=== PATIENT | female | born 1960 | race Caucasian/White ===

== ENCOUNTER → 2017-10-16 | Outpatient (CLI) | payer OTHER ==
[~2017-10-16] MED LIST: ACET325 PO; ASPI325EC PO; ATOR40TA PO; ATORVASTATIN; AZIT250 PO; CHOL10002; CYCL10 PO; DAILY MULTIPLE1 EACH; FISH OIL 1,0001 EAC1 PO; IBUP800 PO; OMEPRAZOLE MAGN20 MG PO; OXYACE5T PO; THYR60 PO; THYROID
[2017-10-16 08:48] LABS: BASOPHILS ABSOLUTE AUTO 0.18 K/mm3 (0.00-0.23); BASOPHILS PERCENT AUTO 2 % (0-2); EOSINOPHILS ABSOLUTE AUTO 0.57 K/mm3 (0.00-0.68); EOSINOPHILS PERCENT AUTO 6 % (0-6); Hematocrit 52.9 % (33.0-51.0); Hemoglobin 16.5 g/dL (11.5-16.0); IMMATURE GRAN ABSOLUTE AUTO 0.12 K/mm3 (0.00-0.10); IMMATURE GRAN PERCENT AUTO 1 % (0-1); LYMPHOCYTES ABSOLUTE AUTO 2.04 K/mm3 (0.84-5.20); LYMPHOCYTES PERCENT AUTO 20 % (21-46); MONOCYTES ABSOLUTE AUTO 1.08 K/mm3 (0.16-1.47); MONOCYTES PERCENT AUTO 10 % (4-13); Mean Corpuscular HGB 22.9 pg (26.0-34.0); Mean Corpuscular HGB Conc 31.2 g/dL (31.5-36.5); Mean Corpuscular Volume 74 fL (80-100); Mean Platelet Volume 9.8 fL (9.1-12.4); NEUTROPHILS ABSOLUTE AUTO 6.38 K/mm3 (1.96-9.15); NEUTROPHILS PERCENT AUTO 62 % (41-73); Platelet Count 633 K/mm3 (150-400); RDW Coefficient Variation 21.1 % (11.7-14.2); RDW Standard Deviation 50.2 fL (35.1-46.3); Red Blood Cell Count 7.19 M/mm3 (3.80-5.20); White Blood Cell Count 10.37 K/mm3 (4.00-11.30)
[2017-10-16 09:37] LABS: Anion Gap 11 mmol/L (6-16); Blood Urea Nitrogen 22 mg/dL (8-24); Bun/Creatinine Ratio 25.3 (12.0-20.0); CO2, Blood 26 mmol/L (21-32); Chloride, Blood 103 mmol/L (98-108); Creatinine, Blood 0.87 mg/dL (0.40-1.00); Glomerular Filtration Rate >60 (60-); Glucose, Blood 124 mg/dL (70-99); Potassium, Blood 4.3 mmol/L (3.5-5.5); Sodium, Blood 140 mmol/L (136-145)
[2017-10-16 09:38] LABS: Albumin, Blood 3.6 g/dL (3.4-5.0)
[2017-10-16 09:40] LABS: Alanine Aminotransfer (ALT/SGP 46 U/L (12-78); Albumin/Globulin Ratio 0.9 (0.8-1.8); Alk Phos 66 U/L (40-126); Aspartate Aminotrans (AST/SGOT 39 U/L (12-37); Bilirubin, Total 0.3 mg/dL (0.1-1.0); Globulin, Blood 4.2 g/dL (2.2-4.0); Total Protein, Blood 7.8 g/dL (6.4-8.2)
[2017-10-16 13:54] LABS: Percent Saturation 5.6 % (15.0-50.0)
== END ==
LOC: LAB EV 08:44 → LAB SHORT 08:44
PROVIDERS: General Practice
DX: I95.9 Hypotension, unspecified (principal); D47.3 Essential (hemorrhagic) thrombocythemia; R07.9 Chest pain, unspecified
CPT/HCPCS: 80053; 83540; 83550; 85025; 85379

== ENCOUNTER → 2018-01-15 | Outpatient (CLI) | payer OTHER ==
[~2018-01-15] MED LIST changes: -ACET325 PO; -ATOR40TA PO; -ATORVASTATIN; -AZIT250 PO; -IBUP800 PO; -OMEPRAZOLE MAGN20 MG PO
== END | disposition home or self-care (01) ==
LOC: LAB EV 08:36 → LAB SHORT 08:36
DX: J02.9 Acute pharyngitis, unspecified (principal)
CPT/HCPCS: 87070

== ENCOUNTER 2018-05-04 06:30 | Inpatient (IN) | payer OTHER ==
[~2018-05-04] VITALS: Ht 175.3 cm; Wt 91.7 kg
[2018-05-04] MEDS ORDERED: ATORVASTATIN (07:06)
[2018-05-04 07:09] LABS: BASOPHILS ABSOLUTE AUTO 0.16 K/mm3 (0.00-0.23); BASOPHILS PERCENT AUTO 1 % (0-2); EOSINOPHILS ABSOLUTE AUTO 0.02 K/mm3 (0.00-0.68); EOSINOPHILS PERCENT AUTO 0 % (0-6); Hemoglobin 13.5 g/dL (11.5-16.0); IMMATURE GRAN ABSOLUTE AUTO 0.58 K/mm3 (0.00-0.10); IMMATURE GRAN PERCENT AUTO 2 % (0-1); LYMPHOCYTES ABSOLUTE AUTO 1.04 K/mm3 (0.84-5.20); LYMPHOCYTES PERCENT AUTO 3 % (21-46); MONOCYTES PERCENT AUTO 8 % (4-13); Mean Corpuscular HGB 20.2 pg (26.0-34.0); Mean Corpuscular Volume 67 fL (80-100); Mean Platelet Volume 10.2 fL (9.1-12.4); NEUTROPHILS ABSOLUTE AUTO 27.49 K/mm3 (1.96-9.15); NEUTROPHILS PERCENT AUTO 86 % (41-73); Platelet Count 702 K/mm3 (150-400); RDW Coefficient Variation 18.7 % (11.7-14.2); RDW Standard Deviation 39.9 fL (35.1-46.3); Red Blood Cell Count 6.69 M/mm3 (3.80-5.20); White Blood Cell Count 31.89 K/mm3 (4.00-11.30)
[2018-05-04 07:35] LABS: Alanine Aminotransfer (ALT/SGP 24 U/L (12-78); Albumin, Blood 3.2 g/dL (3.4-5.0); Albumin/Globulin Ratio 0.8 (0.8-1.8); Alk Phos 61 U/L (50-136); Anion Gap 10 mmol/L (6-16); Aspartate Aminotrans (AST/SGOT 12 U/L (12-37); Bilirubin, Total 0.9 mg/dL (0.1-1.0); Blood Urea Nitrogen 10 mg/dL (8-24); Bun/Creatinine Ratio 16.4 (12.0-20.0); CO2, Blood 22 mmol/L (21-32); Calcium, Blood 8.9 mg/dL (8.5-10.1); Chloride, Blood 105 mmol/L (98-108); Creatinine, Blood 0.61 mg/dL (0.40-1.00); Globulin, Blood 4.2 g/dL (2.2-4.0); Glomerular Filtration Rate >60 (60-); Glucose, Blood 155 mg/dL (70-99); Potassium, Blood 3.6 mmol/L (3.5-5.5); Sodium, Blood 137 mmol/L (136-145); Total Protein, Blood 7.4 g/dL (6.4-8.2); Troponin I <0.015 ng/mL (0.000-0.040)
[2018-05-04 14:02] LABS: Hematocrit 43.1 % (33.0-51.0); Hemoglobin 13.2 g/dL (11.5-16.0); Mean Corpuscular HGB 20.7 pg (26.0-34.0); Mean Corpuscular HGB Conc 30.6 g/dL (31.5-36.5); Mean Corpuscular Volume 67 fL (80-100); Mean Platelet Volume 9.9 fL (9.1-12.4); Platelet Count 664 K/mm3 (150-400); RDW Coefficient Variation 18.5 % (11.7-14.2); RDW Standard Deviation 40.1 fL (35.1-46.3); Red Blood Cell Count 6.39 M/mm3 (3.80-5.20); White Blood Cell Count 28.95 K/mm3 (4.00-11.30)
[2018-05-04 14:41] LABS: BAND PERCENT MAN 6 % (0-8); BASOPHILS PERCENT MAN 0 % (0-2); EOSINOPHILS PERCENT MAN 0 % (0-6); LYMPHOCYTES ABSOLUTE MAN 2.02 K/mm3 (0.84-5.20); LYMPHOCYTES PERCENT MAN 7 % (21-46); MONOCYTES ABSOLUTE MAN 0.86 K/mm3 (0.16-1.47); MONOCYTES PERCENT MAN 3 % (4-13); NEUTROPHILS ABSOLUTE MAN 26.05 K/mm3 (1.96-9.15); SEG NEUTROPHILS PERCENT MAN 84 % (41-73); TOTAL CELLS COUNTED 100
[2018-05-05 05:31] LABS: BASOPHILS ABSOLUTE AUTO 0.16 K/mm3 (0.00-0.23); BASOPHILS PERCENT AUTO 1 % (0-2); EOSINOPHILS ABSOLUTE AUTO 0.11 K/mm3 (0.00-0.68); EOSINOPHILS PERCENT AUTO 0 % (0-6); Hematocrit 40.9 % (33.0-51.0); Hemoglobin 12.3 g/dL (11.5-16.0); IMMATURE GRAN ABSOLUTE AUTO 0.52 K/mm3 (0.00-0.10); IMMATURE GRAN PERCENT AUTO 2 % (0-1); LYMPHOCYTES ABSOLUTE AUTO 0.75 K/mm3 (0.84-5.20); LYMPHOCYTES PERCENT AUTO 3 % (21-46); MONOCYTES ABSOLUTE AUTO 2.45 K/mm3 (0.16-1.47); MONOCYTES PERCENT AUTO 9 % (4-13); Mean Corpuscular HGB 20.2 pg (26.0-34.0); Mean Corpuscular HGB Conc 30.1 g/dL (31.5-36.5); Mean Corpuscular Volume 67 fL (80-100); Mean Platelet Volume 10.2 fL (9.1-12.4); NEUTROPHILS ABSOLUTE AUTO 22.81 K/mm3 (1.96-9.15); NEUTROPHILS PERCENT AUTO 85 % (41-73); Platelet Count 599 K/mm3 (150-400); RDW Coefficient Variation 18.1 % (11.7-14.2); RDW Standard Deviation 39.8 fL (35.1-46.3)
[2018-05-05 05:50] LABS: Alanine Aminotransfer (ALT/SGP 18 U/L (12-78); Albumin, Blood 2.8 g/dL (3.4-5.0); Albumin/Globulin Ratio 0.7 (0.8-1.8); Alk Phos 55 U/L (50-136); Anion Gap 9 mmol/L (6-16); Aspartate Aminotrans (AST/SGOT 9 U/L (12-37); Bilirubin, Total 0.9 mg/dL (0.1-1.0); Blood Urea Nitrogen 15 mg/dL (8-24); Bun/Creatinine Ratio 22.4 (12.0-20.0); CO2, Blood 24 mmol/L (21-32); Calcium, Blood 8.5 mg/dL (8.5-10.1); Chloride, Blood 104 mmol/L (98-108); Creatinine, Blood 0.67 mg/dL (0.40-1.00); Globulin, Blood 4.1 g/dL (2.2-4.0); Glomerular Filtration Rate >60 (60-); Glucose, Blood 114 mg/dL (70-99); Potassium, Blood 3.3 mmol/L (3.5-5.5); Sodium, Blood 137 mmol/L (136-145); Total Protein, Blood 6.9 g/dL (6.4-8.2); Troponin I 0.072 ng/mL (0.000-0.040)
[2018-05-05 15:13] LABS: Rheumatoid Factor, Serum Negative (Negative)
[2018-05-06 08:25] LABS: BASOPHILS ABSOLUTE AUTO 0.12 K/mm3 (0.00-0.23); BASOPHILS PERCENT AUTO 1 % (0-2); EOSINOPHILS ABSOLUTE AUTO 0.47 K/mm3 (0.00-0.68); EOSINOPHILS PERCENT AUTO 2 % (0-6); Hematocrit 40.4 % (33.0-51.0); Hemoglobin 12.1 g/dL (11.5-16.0); IMMATURE GRAN ABSOLUTE AUTO 0.24 K/mm3 (0.00-0.10); IMMATURE GRAN PERCENT AUTO 1 % (0-1); LYMPHOCYTES ABSOLUTE AUTO 0.81 K/mm3 (0.84-5.20); LYMPHOCYTES PERCENT AUTO 4 % (21-46); MONOCYTES ABSOLUTE AUTO 1.82 K/mm3 (0.16-1.47); MONOCYTES PERCENT AUTO 9 % (4-13); Mean Corpuscular HGB 19.9 pg (26.0-34.0); Mean Corpuscular Volume 67 fL (80-100); Mean Platelet Volume 10.3 fL (9.1-12.4); NEUTROPHILS ABSOLUTE AUTO 16.86 K/mm3 (1.96-9.15); NEUTROPHILS PERCENT AUTO 83 % (41-73); Platelet Count 621 K/mm3 (150-400); RDW Coefficient Variation 18.6 % (11.7-14.2); Red Blood Cell Count 6.07 M/mm3 (3.80-5.20); White Blood Cell Count 20.32 K/mm3 (4.00-11.30)
[2018-05-06 08:49] LABS: Anion Gap 8 mmol/L (6-16); Blood Urea Nitrogen 22 mg/dL (8-24); CO2, Blood 26 mmol/L (21-32); Calcium, Blood 8.9 mg/dL (8.5-10.1); Chloride, Blood 102 mmol/L (98-108); Creatinine, Blood 0.76 mg/dL (0.40-1.00); Glomerular Filtration Rate >60 (60-); Glucose, Blood 120 mg/dL (70-99); Potassium, Blood 3.9 mmol/L (3.5-5.5); Sodium, Blood 136 mmol/L (136-145)
[2018-05-06 10:38] LABS: Antinuclear Antibody Screen Negative (Negative)
[2018-05-06] MEDS ORDERED: ATOR40TA PO (12:09)
[2018-05-06] MEDS ORDERED: AZIT250 PO (12:10)
[2018-05-06] MEDS ORDERED: ACET325 PO (12:10)
[2018-05-06] MEDS ORDERED: IBUP800 PO (12:11)
[2018-05-06] MEDS ORDERED: OMEPRAZOLE MAGN20 MG PO (12:11)
== END 2018-05-06 12:33 | disposition home or self-care (01) | DRG 316 ==
LOC: ER 06:30 → MEDS 11:30
PROVIDERS: Emergency Medicine; Family Medicine
DX: I30.9 Acute pericarditis, unspecified (principal); I25.2 Old myocardial infarction; I10 Essential (primary) hypertension; Z86.73 Personal history of transient ischemic attack (TIA), and cerebral infarction without residual deficits; F17.210 Nicotine dependence, cigarettes, uncomplicated; D45 Polycythemia vera; E89.0 Postprocedural hypothyroidism; E78.5 Hyperlipidemia, unspecified; R05 Cough; I45.10 Unspecified right bundle-branch block; Z98.62 Peripheral vascular angioplasty status; Z95.828 Presence of other vascular implants and grafts; Z90.89 Acquired absence of other organs; D47.3 Essential (hemorrhagic) thrombocythemia; R16.2 Hepatomegaly with splenomegaly, not elsewhere classified; I25.10 Atherosclerotic heart disease of native coronary artery without angina pectoris; I73.9 Peripheral vascular disease, unspecified; I25.9 Chronic ischemic heart disease, unspecified; R09.1 Pleurisy; J20.9 Acute bronchitis, unspecified; I05.0 Rheumatic mitral stenosis; Z79.82 Long term (current) use of aspirin
CPT/HCPCS: 36415; 71046; 71260; 80048; 80053; 82607; 83090; 83690; 83880; 84484; 85007; 85025; 85027; 85651; 86038; 86140; 86430; 93005; 93010; 93306; 99285-25; J0456; J0696; J1650; J1885; J2405; J7040; J7050; Q9967

== ENCOUNTER 2018-05-14 12:41 | Inpatient (IN) | payer OTHER ==
[~2018-05-14] VITALS: Ht 177.8 cm; Wt 98.7 kg
[~2018-05-14 12:41] MED LIST changes: +ACET325 PO; +ATOR40TA PO; +ATORVASTATIN; +AZIT250 PO; +IBUP800 PO; +OMEPRAZOLE MAGN20 MG PO
[2018-05-14 13:39] LABS: Hematocrit 39.4 % (33.0-51.0); Hemoglobin 12.1 g/dL (11.5-16.0); Mean Corpuscular HGB 20.5 pg (26.0-34.0); Mean Corpuscular HGB Conc 30.7 g/dL (31.5-36.5); Mean Corpuscular Volume 67 fL (80-100); Mean Platelet Volume 9.9 fL (9.1-12.4); NRBC ABSOLUTE 0.22 K/mm3 (0.00-0.02); NRBC Auto 0.4 /100 WBC (0.0-0.2); RDW Coefficient Variation 20.7 % (11.7-14.2); RDW Standard Deviation 42.1 fL (35.1-46.3); Red Blood Cell Count 5.89 M/mm3 (3.80-5.20)
[2018-05-14 13:50] LABS: Platelet Count 1802 K/mm3 (150-400); White Blood Cell Count 55.91 K/mm3 (4.00-11.30)
[2018-05-14 14:00] LABS: Calcium, Ionized (POC) 1.04 mmol/L (1.10-1.46); Chloride (POC) 96 mmol/L (98-108); Creatinine (POC) 1.8 mg/dL (0.6-1.0); Glucose (ISTAT POC) 128 mg/dL (70-99); Hemoglobin (POC) 14.3 g/dL (12.0-16.0); Sodium (POC) 126 mmol/L (135-148); Total CO2 (POC) 17 mmol/L (21-32)
[2018-05-14 14:02] LABS: BAND PERCENT MAN 2 % (0-8); BASOPHILS PERCENT MAN 0 % (0-2); EOSINOPHILS PERCENT MAN 0 % (0-6); LYMPHOCYTES ABSOLUTE MAN 2.23 K/mm3 (0.84-5.20); LYMPHOCYTES PERCENT MAN 4 % (21-46); METAMYELOCYTE ABSOLUTE MAN 2.23 K/mm3 (0.00-0.00); METAMYELOCYTE PERCENT MAN 4 % (0-0); MONOCYTES ABSOLUTE MAN 2.79 K/mm3 (0.16-1.47); MONOCYTES PERCENT MAN 5 % (4-13); NEUTROPHILS ABSOLUTE MAN 48.64 K/mm3 (1.96-9.15); SEG NEUTROPHILS PERCENT MAN 85 % (41-73); TOTAL CELLS COUNTED 100
[2018-05-14 14:04] LABS: Albumin, Blood 2.8 g/dL (3.4-5.0); Albumin/Globulin Ratio 0.5 (0.8-1.8); Bilirubin, Total 1.3 mg/dL (0.1-1.0); Bun/Creatinine Ratio 31.9 (12.0-20.0); Creatinine, Blood 1.66 mg/dL (0.40-1.00); Globulin, Blood 5.6 g/dL (2.2-4.0); Potassium, Blood 5.3 mmol/L (3.5-5.5); Total Protein, Blood 8.4 g/dL (6.4-8.2)
[2018-05-14 19:11] LABS: Creatine Kinase MB 1.9 ng/mL (0.0-3.6)
[2018-05-14 21:23] LABS: Source, Urine Clean Catch
[2018-05-14 21:27] LABS: Blood, Urine 2+ (Neg); Glucose Qualitative, Urine Neg (Neg); Ketones, Urine Neg (Neg); Leukocyte Esterase, Urine 1+ (Neg); Nitrite, Urine Neg (Neg); Protein, Urine 2+ (Neg); Specific Gravity, Urine 1.025 (1.003-1.022); Urobilinogen, Urine 1+ (Normal)
[2018-05-14 21:37] LABS: Appearance, Urine Clear (Clear); Bilirubin, Urine 1+ (Neg); Color, Urine Yellow (P-Yellow)
[2018-05-14 21:40] LABS: Red Blood Cells, Urine 0-2 /hpf (0-2); Squamous Epithelial Cells Many /hpf (Few); White Blood Cells, Urine 25-50 /hpf (0-5)
[2018-05-14 21:41] LABS: Bacteria Few /hpf
[2018-05-15 02:15] LABS: Hematocrit 40.9 % (33.0-51.0); Hemoglobin 12.1 g/dL (11.5-16.0); Mean Corpuscular HGB 20.4 pg (26.0-34.0); Mean Corpuscular HGB Conc 29.6 g/dL (31.5-36.5); Mean Corpuscular Volume 69 fL (80-100); Mean Platelet Volume 9.5 fL (9.1-12.4); NRBC ABSOLUTE 0.31 K/mm3 (0.00-0.02); NRBC Auto 0.5 /100 WBC (0.0-0.2); RDW Coefficient Variation 20.4 % (11.7-14.2); RDW Standard Deviation 43.7 fL (35.1-46.3); Red Blood Cell Count 5.92 M/mm3 (3.80-5.20)
[2018-05-15 02:18] LABS: Platelet Count 1801 K/mm3 (150-400); White Blood Cell Count 64.48 K/mm3 (4.00-11.30)
[2018-05-15 02:34] LABS: Creatine Kinase MB 2.7 ng/mL (0.0-3.6); Creatine Kinase MB Index 8.2 (0.0-4.0); Troponin I 0.036 ng/mL (0.000-0.040)
[2018-05-15 03:24] LABS: Magnesium, Blood 2.7 mg/dL (1.6-2.4)
[2018-05-15 03:43] LABS: Albumin, Blood 2.8 g/dL (3.4-5.0); Albumin/Globulin Ratio 0.5 (0.8-1.8); Bilirubin, Total 1.3 mg/dL (0.1-1.0); Bun/Creatinine Ratio 33.3 (12.0-20.0); Calcium, Blood 8.6 mg/dL (8.5-10.1); Creatinine, Blood 1.92 mg/dL (0.40-1.00); Globulin, Blood 5.1 g/dL (2.2-4.0); Potassium, Blood 5.7 mmol/L (3.5-5.5); Total Protein, Blood 7.9 g/dL (6.4-8.2)
[2018-05-15 08:29] LABS: Automated BF RBC Count 0.151 M/mm3 (0-0); RBC Count, Body Fluid 151000 /mm3 (0-0)
[2018-05-15 08:41] LABS: Body Fluid WBC Count > 200000 /mm3 (0-999)
[2018-05-15 08:55] LABS: Glucose, Body Fluid 1 mg/dL; Protein, Body Fluid 5.7 g/dL
[2018-05-15 10:01] LABS: Hematocrit 39.1 % (33.0-51.0); Hemoglobin 10.9 g/dL (11.5-16.0); Mean Corpuscular HGB 20.4 pg (26.0-34.0); Mean Corpuscular HGB Conc 27.9 g/dL (31.5-36.5); Mean Platelet Volume 9.5 fL (9.1-12.4); NRBC ABSOLUTE 0.62 K/mm3 (0.00-0.02); NRBC Auto 1.1 /100 WBC (0.0-0.2); RDW Coefficient Variation 20.2 % (11.7-14.2); RDW Standard Deviation 47.8 fL (35.1-46.3); Red Blood Cell Count 5.34 M/mm3 (3.80-5.20)
[2018-05-15 10:07] LABS: Mean Corpuscular Volume 73 fL (80-100)
[2018-05-15 10:09] LABS: Platelet Count 1364 K/mm3 (150-400); White Blood Cell Count 55.14 K/mm3 (4.00-11.30)
[2018-05-15 10:15] LABS: Source, Urine Clean Catch
[2018-05-15 10:15] LABS: Lactate Dehydrogenase, Body Fl 5701 U/L
[2018-05-15 10:22] LABS: Creatine Kinase MB 3.4 ng/mL (0.0-3.6); Creatine Kinase MB Index 4.5 (0.0-4.0); Troponin I 0.055 ng/mL (0.000-0.040)
[2018-05-15 10:23] LABS: Bilirubin, Urine Neg (Neg); Blood, Urine 4+ (Neg); Glucose Qualitative, Urine Neg (Neg); Ketones, Urine Neg (Neg); Leukocyte Esterase, Urine Neg (Neg); Nitrite, Urine Neg (Neg); Protein, Urine 2+ (Neg); Specific Gravity, Urine 1.015 (1.003-1.022); Urobilinogen, Urine NORM (Normal)
[2018-05-15 10:23] LABS: Magnesium, Blood 2.8 mg/dL (1.6-2.4)
[2018-05-15 10:25] LABS: BASOPHILS PERCENT MAN 0 % (0-2); EOSINOPHILS ABSOLUTE MAN 0.55 K/mm3 (0.00-0.68); EOSINOPHILS PERCENT MAN 1 % (0-6); LYMPHOCYTES ABSOLUTE MAN 8.27 K/mm3 (0.84-5.20); LYMPHOCYTES PERCENT MAN 15 % (21-46); METAMYELOCYTE ABSOLUTE MAN 0.55 K/mm3 (0.00-0.00); METAMYELOCYTE PERCENT MAN 1 % (0-0); MONOCYTES PERCENT MAN 4 % (4-13); MYELOCYTE ABSOLUTE MAN 0.55 K/mm3 (0.00-0.00); MYELOCYTE PERCENT MAN 1 % (0-0); SEG NEUTROPHILS PERCENT MAN 78 % (41-73); TOTAL CELLS COUNTED 100
[2018-05-15 10:30] LABS: Appearance, Urine Hazy (Clear); Color, Urine Yellow (P-Yellow)
[2018-05-15 10:33] LABS: Amorphous Light (0-Heavy); Bacteria Few /hpf; Mucus Light (0-Heavy); Squamous Epithelial Cells Few /hpf (Few)
[2018-05-15 10:34] LABS: Albumin, Blood 2.3 g/dL (3.4-5.0); Albumin/Globulin Ratio 0.5 (0.8-1.8); Bilirubin, Total 1.8 mg/dL (0.1-1.0); Bun/Creatinine Ratio 31.1 (12.0-20.0); Creatinine, Blood 2.19 mg/dL (0.40-1.00); Globulin, Blood 4.3 g/dL (2.2-4.0); Phosphorus, Blood 8.1 mg/dL (2.5-4.9); Potassium, Blood 5.1 mmol/L (3.5-5.5); Total Protein, Blood 6.6 g/dL (6.4-8.2)
[2018-05-15 11:08] LABS: Appearance, Body Fluid Cloudy (Clear); Color, Body Fluid Red (None-Yellow)
[2018-05-15 11:10] LABS: Total Cell Count, Body Fluid 100
[2018-05-15 17:07] LABS: Albumin, Blood 2.2 g/dL (3.4-5.0); Albumin/Globulin Ratio 0.6 (0.8-1.8); Bilirubin, Total 1.1 mg/dL (0.1-1.0); Bun/Creatinine Ratio 38.4 (12.0-20.0); Calcium, Blood 8.5 mg/dL (8.5-10.1); Creatinine, Blood 1.72 mg/dL (0.40-1.00); Globulin, Blood 3.8 g/dL (2.2-4.0); Magnesium, Blood 2.2 mg/dL (1.6-2.4); Potassium, Blood 3.7 mmol/L (3.5-5.5)
[2018-05-15 17:32] LABS: Phosphorus, Blood 4.5 mg/dL (2.5-4.9)
[2018-05-16 07:14] LABS: HBSAG SCREEN Negative (Negative); HEP A AB, IGM Negative (Negative); HEP B CORE AB, IGM Negative (Negative); HEP C VIRUS AB <0.1 (0.0-0.9)
== END 2018-05-15 17:57 | disposition short-term general hospital (02) | DRG 871 ==
LOC: ER 12:41 → MEDS 17:52 → ICUE 17:52 → MEDS 19:45 → ICUE 05-15 05:52
PROVIDERS: Emergency Medicine; Family Medicine; Internal Medicine; Internal Medicine Critical Care Medicine; Physician Assistant
PROC: 0W9D30Z Drainage of Pericardial Cavity with Drainage Device, Percutaneous Approach (ICD-10-PCS; principal; 2018-05-15)
DX: A41.9 Sepsis, unspecified organism (principal); R57.8 Other shock; J96.00 Acute respiratory failure, unspecified whether with hypoxia or hypercapnia; I31.3 Pericardial effusion (noninflammatory); E87.1 Hypo-osmolality and hyponatremia; E87.2 Acidosis; N17.9 Acute kidney failure, unspecified; I30.1 Infective pericarditis; N39.0 Urinary tract infection, site not specified; D47.3 Essential (hemorrhagic) thrombocythemia; D45 Polycythemia vera; I25.2 Old myocardial infarction; Z86.73 Personal history of transient ischemic attack (TIA), and cerebral infarction without residual deficits; F17.200 Nicotine dependence, unspecified, uncomplicated; Z15.89 Genetic susceptibility to other disease; I25.10 Atherosclerotic heart disease of native coronary artery without angina pectoris; Z90.89 Acquired absence of other organs; E89.0 Postprocedural hypothyroidism; D72.829 Elevated white blood cell count, unspecified; E87.5 Hyperkalemia; R65.20 Severe sepsis without septic shock
CPT/HCPCS: 36415; 36569; 51702; 71046; 71260; 76700; 80047; 80053; 80074; 81001; 82330; 82550; 82553; 82945; 83605; 83615; 83735; 83880; 84100; 84157; 84484; 85007; 85014; 85025; 85027; 87040; 87070; 87075; 87077; 87147; 87186; 87205; 89051; 93005; 93010; 93308; 94660; 96361; 96374; 99285-25; C1751; C1769; J0610; J1650; J1815; J2405; J2543; J3010; J3370; J7030; J7050; J7060; J7120; Q9967

== ENCOUNTER → 2018-06-30 | Outpatient (CLI) | payer OTHER ==
[2018-06-30 11:41] LABS: Alanine Aminotransfer (ALT/SGP 14 U/L (12-78); Albumin, Blood 3.2 g/dL (3.4-5.0); Alk Phos 55 U/L (50-136); Anion Gap 5 mmol/L (6-16); Aspartate Aminotrans (AST/SGOT 8 U/L (12-37); Bilirubin, Total 0.3 mg/dL (0.1-1.0); Blood Urea Nitrogen 11 mg/dL (8-24); Bun/Creatinine Ratio 20.1 (12.0-20.0); CO2, Blood 28 mmol/L (21-32); Calcium, Blood 9.1 mg/dL (8.5-10.1); Chloride, Blood 105 mmol/L (98-108); Creatinine, Blood 0.55 mg/dL (0.40-1.00); Globulin, Blood 3.2 g/dL (2.2-4.0); Glomerular Filtration Rate >60 (60-); Glucose, Blood 117 mg/dL (70-99); Potassium, Blood 4.3 mmol/L (3.5-5.5); Sodium, Blood 138 mmol/L (136-145); Total Protein, Blood 6.4 g/dL (6.4-8.2)
[2018-06-30 12:00] LABS: BASOPHILS ABSOLUTE AUTO 0.07 K/mm3 (0.00-0.23); BASOPHILS PERCENT AUTO 1 % (0-2); EOSINOPHILS ABSOLUTE AUTO 0.37 K/mm3 (0.00-0.68); EOSINOPHILS PERCENT AUTO 5 % (0-6); Hemoglobin 8.6 g/dL (11.5-16.0); IMMATURE GRAN ABSOLUTE AUTO 0.05 K/mm3 (0.00-0.10); IMMATURE GRAN PERCENT AUTO 1 % (0-1); LYMPHOCYTES ABSOLUTE AUTO 1.41 K/mm3 (0.84-5.20); LYMPHOCYTES PERCENT AUTO 19 % (21-46); MONOCYTES ABSOLUTE AUTO 0.76 K/mm3 (0.16-1.47); MONOCYTES PERCENT AUTO 10 % (4-13); Mean Corpuscular HGB 20.2 pg (26.0-34.0); Mean Corpuscular HGB Conc 28.7 g/dL (31.5-36.5); Mean Corpuscular Volume 71 fL (80-100); Mean Platelet Volume 10.6 fL (9.1-12.4); NEUTROPHILS PERCENT AUTO 64 % (41-73); Platelet Count 354 K/mm3 (150-400); RDW Coefficient Variation 22.7 % (11.7-14.2); RDW Standard Deviation 54.7 fL (35.1-46.3); Red Blood Cell Count 4.25 M/mm3 (3.80-5.20); White Blood Cell Count 7.36 K/mm3 (4.00-11.30)
== END ==
LOC: LAB SHORT 10:10 → LAB 10:10
PROVIDERS: Internal Medicine Infectious Disease
DX: A41.01 Sepsis due to Methicillin susceptible Staphylococcus aureus (principal)
CPT/HCPCS: 80053; 85025

== ENCOUNTER → 2022-01-18 | Outpatient (CLI) | payer OTHER ==
[2022-01-18 15:41] LABS: Free Thyroxine 0.69 ng/dL (0.70-1.60); Thyroid Stimulating Hormone 0.922 uIU/mL (0.360-4.800); Triiodothyronine, Free 3.31 pg/mL (2.18-3.98)
== END | disposition home or self-care (01) ==
LOC: LAB 14:30 → LAB SHORT 14:30
PROVIDERS: Nurse Practitioner Family
DX: E03.9 Hypothyroidism, unspecified (principal)
CPT/HCPCS: 84439; 84443; 84481

== ENCOUNTER → 2023-01-02 | Outpatient (CLI) | payer OTHER ==
[2023-01-02 11:45] LABS: BASOPHILS ABSOLUTE AUTO 0.17 K/mm3 (0.00-0.23); BASOPHILS PERCENT AUTO 1 % (0-2); EOSINOPHILS ABSOLUTE AUTO 0.62 K/mm3 (0.00-0.68); EOSINOPHILS PERCENT AUTO 5 % (0-6); Hemoglobin 12.9 g/dL (11.5-16.0); IMMATURE GRAN ABSOLUTE AUTO 0.13 K/mm3 (0.00-0.10); IMMATURE GRAN PERCENT AUTO 1 % (0-1); LYMPHOCYTES PERCENT AUTO 9 % (21-46); MONOCYTES ABSOLUTE AUTO 0.36 K/mm3 (0.16-1.47); MONOCYTES PERCENT AUTO 3 % (4-13); Mean Corpuscular HGB 21.4 pg (26.0-34.0); Mean Corpuscular HGB Conc 28.7 g/dL (31.5-36.5); Mean Corpuscular Volume 75 fL (80-100); NEUTROPHILS ABSOLUTE AUTO 10.63 K/mm3 (1.96-9.15); NEUTROPHILS PERCENT AUTO 82 % (41-73); Platelet Count 456 K/mm3 (150-400); RDW Coefficient Variation 26.2 % (11.7-14.2); RDW Standard Deviation 64.8 fL (35.1-46.3); Red Blood Cell Count 6.03 M/mm3 (3.80-5.20); White Blood Cell Count 13.01 K/mm3 (4.00-11.30)
[2023-01-02 12:41] LABS: Albumin, Blood 3.5 g/dL (3.4-5.0); Albumin/Globulin Ratio 0.9 (0.8-1.8); Bilirubin, Total 0.6 mg/dL (0.1-1.0); Bun/Creatinine Ratio 25.7 (12.0-20.0); Creatinine, Blood 0.7 mg/dL (0.40-1.00); Free Thyroxine 0.76 ng/dL (0.70-1.60); Globulin, Blood 3.7 g/dL (2.2-4.0); Potassium, Blood 4.4 mmol/L (3.5-5.5); Total Protein, Blood 7.2 g/dL (6.4-8.2)
== END | disposition home or self-care (01) ==
LOC: LAB SHORT 11:40 → LAB 11:40
PROVIDERS: Chiropractor
DX: I48.91 Unspecified atrial fibrillation (principal); E03.9 Hypothyroidism, unspecified
CPT/HCPCS: 80053; 83735; 83880; 84439; 84484; 85025

== ENCOUNTER → 2023-02-27 | Outpatient (CLI) | payer OTHER | END | disposition home or self-care (01) | LOC: LAB 07:29 → LAB SHORT 07:29 | DX: E03.9 Hypothyroidism, unspecified (principal) | CPT/HCPCS: 84443 ==

== ENCOUNTER 2023-06-09 11:03 | Inpatient (IN) | payer OTHER ==
[2023-06-09] VITALS (17 sets, daily range): BP systolic 101–138; BP diastolic 53–88
[~2023-06-09] VITALS: Ht 177.8 cm; Wt 91.9 kg
[2023-06-09 11:25] LABS: Calcium, Ionized (POC) 1.12 mmol/L (1.10-1.46); Chloride (POC) 110 mmol/L (98-108); Creatinine (POC) 0.6 mg/dL (0.6-1.0); Glucose (ISTAT POC) 172 mg/dL (70-99); Hemoglobin (POC) 10.9 g/dL (12.0-16.0); Potassium (POC) 3.7 mmol/L (3.5-5.5); Sodium (POC) 139 mmol/L (135-148); Total CO2 (POC) 18 mmol/L (21-32)
[2023-06-09] MEDS ORDERED: HYDURE500 PO (11:28)
[2023-06-09 11:41] LABS: BASOPHILS ABSOLUTE AUTO 0.29 K/mm3 (0.00-0.23); BASOPHILS PERCENT AUTO 1 % (0-2); EOSINOPHILS ABSOLUTE AUTO 0.44 K/mm3 (0.00-0.68); EOSINOPHILS PERCENT AUTO 2 % (0-6); Hematocrit 30.3 % (33.0-51.0); Hemoglobin 9.7 g/dL (11.5-16.0); IMMATURE GRAN ABSOLUTE AUTO 0.35 K/mm3 (0.00-0.10); IMMATURE GRAN PERCENT AUTO 2 % (0-1); LYMPHOCYTES PERCENT AUTO 16 % (21-46); MONOCYTES ABSOLUTE AUTO 2.08 K/mm3 (0.16-1.47); MONOCYTES PERCENT AUTO 9 % (4-13); Mean Corpuscular Volume 100 fL (80-100); Mean Platelet Volume 10.7 fL (9.1-12.4); NEUTROPHILS ABSOLUTE AUTO 15.81 K/mm3 (1.96-9.15); NEUTROPHILS PERCENT AUTO 70 % (41-73); NRBC ABSOLUTE 0.03 K/mm3 (0.00-0.02); NRBC Auto 0.1 /100 WBC (0.0-0.2); Platelet Count 505 K/mm3 (150-400); RDW Coefficient Variation 24.5 % (11.7-14.2); RDW Standard Deviation 87.1 fL (35.1-46.3); Red Blood Cell Count 3.03 M/mm3 (3.80-5.20); White Blood Cell Count 22.67 K/mm3 (4.00-11.30)
[2023-06-09 11:51] LABS: Bun/Creatinine Ratio 81.4 (12.0-20.0); Calcium, Blood 8.5 mg/dL (8.5-10.1); Creatinine, Blood 0.75 mg/dL (0.40-1.00); Potassium, Blood 3.8 mmol/L (3.5-5.5)
[2023-06-09 12:13] LABS: International Normalized Ratio 1.13; Prothrombin Time Results 11.8 Sec (9.7-11.5)
[2023-06-09 15:42] LABS: Hematocrit 28.4 % (33.0-51.0); Hemoglobin 8.9 g/dL (11.5-16.0)
--- NOTE | 2023-06-09 16:00 | NUR ---
ICU ADMISSION: REPORT RECEIVED FROM JIM Acevedo RN IN ED. PT ARRIVED TO ICU-08 AT APPROX 1455. ON ARRIVAL, THE PT IS A&O, PLEASANT & CONVERSANT W/ STAFF. SHE IS A&O TO ALL, DENIES PAIN, IS SLIGHTLY TREMULOUS, MORE SO ON LEFT SIDE THAN RIGHT. HX CVA W/ MILD LEFT SIDE DEFICITS NOTED PER REPORT. LS WHEEZING T/O, PT ON RA W/ O2 SATS > 92%. MONITOR SHOWS SR W/ OCCASIONAL PACs, HR 70-80s, BP STABLE. PT HAS BEEN EXPERIENCING DARK TARRY STLS x3 DAYS, PER REPORT. NO STLS OR HEMATEMSIS NOTED SINCE ARRIVAL TO ICU. PT DENIES NAUSEA AT THIS TIME, IS CONTINENT OF BOWEL & BLADDER & WILL NOTIFY STAFF WHEN NEEDING TO VOID. ATTENDS IN PLACE. SKIN CONDITION OVERALL INTACT, Q2H REPOSITIONING TO MAINTAIN SKIN INTEGRITY. DR MARCOS HAS BEEN CONSULTED BY HOSPITALIST RESIDENT, IT IS REPORTED THAT HE WILL SEE THE PT THIS EVENING. PROTONIX & NS INFUSING PER EMAR. WILL CONTINUE TO MONITOR & UPDATE NEEDED.
--- NOTE | 2023-06-09 18:43 | NUR ---
SHIFT SUMMARY: NO ACUTE CHANGES SINCE PRIOR UPDATES. PT REMAINS A&O, PLEASANT & COOPERATIVE. SHE HAS BEEN ABLE TO STAND/ TRANSFER TO BSC W/ MINIMAL STAFF ASSIST, NO COMPLAINTS OF DIZZINESS OR LIGHTHEADEDNESS AT THAT TIME. LS DIM IN BASES, OCCASIONAL WHEEZING NOTED. PT ON RA W/ O2 SATS > 92%. MONITOR SHOWS SR W/ HR 70-80s, OCCASIONAL PACs, BP STABLE. PT NPO R/T PLANNED ENDOSCOPY THIS EVENING. BLACK TARRY STLS HAVE CONTINUED, NO FURTHER HEMATEMSIS NOTED. SKIN CONDTITION OVERALL INTACT. PT ABLE TO REPOSITION SELF W/O DIFFICULTY FOR COMFORT PRN. WILL CONTINUE TO MONITOR & REPORT OFF TO ONCOMING RN.
--- NOTE | 2023-06-09 20:01 | NUR ---
PATIENT RESTING IN BED A&O X3. USING LAPTOP WITHOUT DIFFICULTY. PATIENT VERBALIZED SHE IS FEELING BETTER. NO C/O NAUSEA. PROTONIX DRIP INFUSING. DOCTOR PRITI IN TO SEE PATIENT
[2023-06-09 21:45] LABS: Hematocrit 23.3 % (33.0-51.0); Hemoglobin 7.4 g/dL (11.5-16.0)
--- NOTE | 2023-06-09 22:44 | NUR ---
DOCTOR BURNHAM GIVEN UPDATE ON PATIENT AND CURRENT H&H. PATIENT HAVING NO NAUSEA, NOT PASSING BM. AND VSS. WILL CONTINUE TO MONITOR FOR ACTIVE BLEEDING AND REPEAT CBC EARLY THIS AM
[2023-06-10] VITALS (41 sets, daily range): BP systolic 72–142; BP diastolic 39–94
[2023-06-10 05:07] LABS: Hematocrit 24.5 % (33.0-51.0); Hemoglobin 7.6 g/dL (11.5-16.0); Mean Corpuscular HGB 32.1 pg (26.0-34.0); Mean Corpuscular Volume 103 fL (80-100); Mean Platelet Volume 10.3 fL (9.1-12.4); Platelet Count 334 K/mm3 (150-400); RDW Coefficient Variation 25.1 % (11.7-14.2); RDW Standard Deviation 89.9 fL (35.1-46.3); Red Blood Cell Count 2.37 M/mm3 (3.80-5.20); White Blood Cell Count 12.55 K/mm3 (4.00-11.30)
[2023-06-10 05:48] LABS: Bun/Creatinine Ratio 41.5 (12.0-20.0); Calcium, Blood 8.5 mg/dL (8.5-10.1); Creatinine, Blood 0.8 mg/dL (0.40-1.00); Potassium, Blood 3.9 mmol/L (3.5-5.5)
--- NOTE | 2023-06-10 06:15 | NUR ---
SUMMARY PATIENT SLEEPING OFF AND ON T/O NIGHT. UP TO BSC SEVERAL TIMES TO VOID. NO BM OR NAUSEA T/O NIGHT. PROTONIX DRIP INFUSING. PLAN FOR UPPER GI SCOPE TODAY APROX 1600 WITH DOCTOR MARCOS. NPO AFTER 1100.
[2023-06-10 13:36] LABS: Hematocrit 23.6 % (33.0-51.0); Hemoglobin 7.5 g/dL (11.5-16.0)
--- NOTE | 2023-06-10 13:36 | NUR ---
0800 ASSUMED CARE OF PATIENT SHE WAS RESTING WELL IN BED BUT GOT UP TO BSC AND AFTER URINATING SHE WAS QUITE SHORT OF BREATH. PLACED A PURWICK. SHE HAS BEEN RESTING SINCE. AWAKE FOR MEDICATION AT 1000 WHEN DAUGHTER WAS IN ROOM. THYROID MED DROPPED OFF SENT TO PHARMACY, NEW TSH LAB DRAWN FOR CORRECT DOSING OF THYROID MEDICATION. LR STARTED IV FOR LOW BP'S. LABS DRAWN FOR H+H. PROTONIX DRIP HAS BEEN CONTINOUS AT 10ML/HR ALL DAY. NO ACUTE SIGNS OF BLEEDING OR NAUSEA FROM PATIENT. AWAITING FOR SCOPE TO COME AT 1600.
--- NOTE | 2023-06-10 16:29 | NUR ---
06/10/[address] WEBB; SEE ANESTHESIA RECORDS. EGD IN ICU 08.
--- NOTE | 2023-06-10 17:44 | NUR ---
END OF SHIFT REPORT PATIENT HAD HER SCOPE TODAY. ULCERS WERE FOUND AND TISSUE WAS SENT FOR BIOPSY. PROTONIX AMEE DC'D AND SHE WILL BE ON IT TAKING BY MOUTH STARTING TONIGHT. SHE DID GET 750ML OF FLUID TODAY IV.. H+H LAST RESULT WAS 7.5HGB. BP STABLE S/P PROCEDURE WITH VS 102/58 MAP 71 PULSE 83 SPO2 100% ON 1L NC RR 22. DIET WAS ORDERED FOR HER... FOR DINNER. SHE HAS BEEN CHANGED TO MEDICAL FLOOR STATUS. NO ACUTE SIGNS OF BLEEDING FOR THIS RN NOTED TODAY. SHE HAS HAD GOOD URINE OUTPUT 500ML FROM PURWICK TODAY AND SHE HAS BEEN ABLE TO GET REST WHILE HAVING IT IN PLACE AND NOT FEELING SO SHORT OF BREATH TODAY.
--- NOTE | 2023-06-10 19:52 | NUR ---
ASSUMED CARE PT IS A&O X4; VSS, ON 1LNC. PT DENIES CP OR NAUSEA. COMPLAINS OF SOB SINCE ADMIT W/ EXERTION. PT AMBULATES WELL TO BEDSIDE COMMODE. PERRLA; LUNGS CLEAR BILATERALLY. PUREWICK IN PLACE D/T PT COMPLAINTS OF POOR SLEEP AND DYSPNEA W/ FREQUENCY LAST NIGHT; PER REPORT.
--- NOTE | 2023-06-10 20:41 | NUR ---
TRANSFER PT TRANSFERRED AT 2024 W/ BELONGINGS AND MEDS. REPORT GIVEN.
[2023-06-10 21:47] LABS: Hematocrit 21.2 % (33.0-51.0); Hemoglobin 6.8 g/dL (11.5-16.0)
[2023-06-11] VITALS (11 sets, daily range): BP systolic 87–139; BP diastolic 59–87
[2023-06-11 04:55] LABS: BASOPHILS ABSOLUTE AUTO 0.06 K/mm3 (0.00-0.23); BASOPHILS PERCENT AUTO 0 % (0-2); EOSINOPHILS ABSOLUTE AUTO 0.06 K/mm3 (0.00-0.68); EOSINOPHILS PERCENT AUTO 0 % (0-6); Hematocrit 21.4 % (33.0-51.0); Hemoglobin 6.8 g/dL (11.5-16.0); IMMATURE GRAN PERCENT AUTO 1 % (0-1); LYMPHOCYTES ABSOLUTE AUTO 0.68 K/mm3 (0.84-5.20); LYMPHOCYTES PERCENT AUTO 5 % (21-46); MONOCYTES ABSOLUTE AUTO 0.47 K/mm3 (0.16-1.47); MONOCYTES PERCENT AUTO 3 % (4-13); Mean Corpuscular HGB 32.9 pg (26.0-34.0); Mean Corpuscular HGB Conc 31.8 g/dL (31.5-36.5); Mean Corpuscular Volume 103 fL (80-100); Mean Platelet Volume 10.4 fL (9.1-12.4); NEUTROPHILS ABSOLUTE AUTO 12.89 K/mm3 (1.96-9.15); NEUTROPHILS PERCENT AUTO 90 % (41-73); Platelet Count 293 K/mm3 (150-400); RDW Coefficient Variation 25.8 % (11.7-14.2); RDW Standard Deviation 93.6 fL (35.1-46.3); Red Blood Cell Count 2.07 M/mm3 (3.80-5.20); White Blood Cell Count 14.36 K/mm3 (4.00-11.30)
[2023-06-11 06:02] LABS: Bun/Creatinine Ratio 28.2 (12.0-20.0); Calcium, Blood 8.3 mg/dL (8.5-10.1); Creatinine, Blood 0.75 mg/dL (0.40-1.00); Potassium, Blood 3.7 mmol/L (3.5-5.5)
[2023-06-11 08:30] LABS: BASOPHILS ABSOLUTE AUTO 0.07 K/mm3 (0.00-0.23); BASOPHILS PERCENT AUTO 1 % (0-2); EOSINOPHILS ABSOLUTE AUTO 0.07 K/mm3 (0.00-0.68); EOSINOPHILS PERCENT AUTO 1 % (0-6); Hematocrit 21.1 % (33.0-51.0); Hemoglobin 6.7 g/dL (11.5-16.0); IMMATURE GRAN ABSOLUTE AUTO 0.19 K/mm3 (0.00-0.10); IMMATURE GRAN PERCENT AUTO 1 % (0-1); LYMPHOCYTES ABSOLUTE AUTO 0.68 K/mm3 (0.84-5.20); LYMPHOCYTES PERCENT AUTO 5 % (21-46); MONOCYTES PERCENT AUTO 3 % (4-13); Mean Corpuscular HGB 32.8 pg (26.0-34.0); Mean Corpuscular HGB Conc 31.8 g/dL (31.5-36.5); Mean Corpuscular Volume 103 fL (80-100); Mean Platelet Volume 10.4 fL (9.1-12.4); NEUTROPHILS ABSOLUTE AUTO 13.33 K/mm3 (1.96-9.15); NEUTROPHILS PERCENT AUTO 90 % (41-73); NRBC ABSOLUTE 0.02 K/mm3 (0.00-0.02); NRBC Auto 0.1 /100 WBC (0.0-0.2); Platelet Count 302 K/mm3 (150-400); RDW Coefficient Variation 26.1 % (11.7-14.2); RDW Standard Deviation 94.1 fL (35.1-46.3); Red Blood Cell Count 2.04 M/mm3 (3.80-5.20); White Blood Cell Count 14.84 K/mm3 (4.00-11.30)
--- NOTE | 2023-06-11 18:22 | NUR ---
SHIFT SUMMARY PT AXO, PLEASANT AND COOPERATIVE WITH CARE. 1 UNIT PRBC'S THIS SHIFT. PT TOLERATED WELL. VSS. PT MEDICATED FOR HEADACHE THIS SHIFT. PT UP INDEPENDENTLY TO BSC. BED IN LOW POSITION, CALL LIGHT WITHIN REACH. NO BM OR EMESIS THIS SHIFT. PT REPORTS PASSING GAS.
[2023-06-12 05:26] VITALS: BP 128/86
[2023-06-12 05:29] LABS: BASOPHILS ABSOLUTE AUTO 0.11 K/mm3 (0.00-0.23); BASOPHILS PERCENT AUTO 1 % (0-2); EOSINOPHILS ABSOLUTE AUTO 0.25 K/mm3 (0.00-0.68); EOSINOPHILS PERCENT AUTO 2 % (0-6); Hematocrit 24.1 % (33.0-51.0); Hemoglobin 7.7 g/dL (11.5-16.0); IMMATURE GRAN ABSOLUTE AUTO 0.17 K/mm3 (0.00-0.10); IMMATURE GRAN PERCENT AUTO 1 % (0-1); LYMPHOCYTES ABSOLUTE AUTO 1.08 K/mm3 (0.84-5.20); LYMPHOCYTES PERCENT AUTO 9 % (21-46); MONOCYTES ABSOLUTE AUTO 0.61 K/mm3 (0.16-1.47); MONOCYTES PERCENT AUTO 5 % (4-13); Mean Corpuscular HGB 32.1 pg (26.0-34.0); Mean Corpuscular Volume 100 fL (80-100); Mean Platelet Volume 9.9 fL (9.1-12.4); NEUTROPHILS ABSOLUTE AUTO 10.25 K/mm3 (1.96-9.15); NEUTROPHILS PERCENT AUTO 82 % (41-73); Platelet Count 319 K/mm3 (150-400); RDW Coefficient Variation 25.7 % (11.7-14.2); RDW Standard Deviation 90.2 fL (35.1-46.3); White Blood Cell Count 12.47 K/mm3 (4.00-11.30)
[2023-06-12 05:53] LABS: BASOPHILS PERCENT MAN 0 % (0-2); EOSINOPHILS PERCENT MAN 0 % (0-6); LYMPHOCYTES ABSOLUTE MAN 0.87 K/mm3 (0.84-5.20); LYMPHOCYTES PERCENT MAN 7 % (21-46); MONOCYTES ABSOLUTE MAN 0.37 K/mm3 (0.16-1.47); MONOCYTES PERCENT MAN 3 % (4-13); NEUTROPHILS ABSOLUTE MAN 11.22 K/mm3 (1.96-9.15); SEG NEUTROPHILS PERCENT MAN 90 % (41-73); TOTAL CELLS COUNTED 100
[2023-06-12 06:02] LABS: Albumin, Blood 2.6 g/dL (3.4-5.0); Anion Gap 5 mmol/L (6-16); Blood Urea Nitrogen 18 mg/dL (8-24); Bun/Creatinine Ratio 24.4 (12.0-20.0); CO2, Blood 25 mmol/L (21-32); Chloride, Blood 111 mmol/L (98-108); Creatinine, Blood 0.74 mg/dL (0.40-1.00); Glomerular Filtration Rate 91 (60-); Glucose, Blood 110 mg/dL (70-99); Phosphorus, Blood 2.4 mg/dL (2.5-4.9); Potassium, Blood 3.5 mmol/L (3.5-5.5); Sodium, Blood 141 mmol/L (136-145)
--- NOTE | 2023-06-12 06:32 | NUR ---
NOC SHIFT SUMMARY: TYLENOL GIVEN FOR A HEADACHE THIS MORNING. 1000 FLUID RESTRICTION. VOIDS IN URINAL.
[2023-06-12 07:29] VITALS: BP 121/72
[2023-06-12] MEDS ORDERED: PANT40 PO (10:01)
--- NOTE | 2023-06-12 11:13 | NUR ---
DISCHARGE SUMMARY PT DISCHARGED TO HOME. PT LEFT ROOM JUST PRIOR TO THIS NOTE VIA WHEELCHAIR WITH RN ESCORT. PT EDUCATED ON ALL DISCHARGE INSTRUCTIONS, ALL QUESTIONS ANSWERED. PT AGREES TO TAKE MEDICATIONS PRESCRIBED AND TO FOLLOW UP WITH PCP AND DR RUFFIN. DANE HUITRON AND JHON RETURNED.
[2023-06-13] MEDS ORDERED: CLOP75 PO (15:37)
[2023-06-13] MEDS ORDERED: CARV6.25 PO (15:37)
[2023-06-13] MEDS ORDERED: FURO20 PO (15:38)
== END 2023-06-12 11:00 | disposition home or self-care (01) | DRG 378 ==
LOC: ER 11:03 → ICUE 13:02 → MEDS 06-10 20:25
PROVIDERS: Family Medicine; Family Medicine Adult Medicine; Internal Medicine; Internal Medicine Gastroenterology; Student in an Organized Health Care Education/Training Program; ADMIT Hospitalist
PROC: 30233N1 Transfusion of Nonautologous Red Blood Cells into Peripheral Vein, Percutaneous Approach (ICD-10-PCS; 2023-06-09)
PROC: 0DB68ZX Excision of Stomach, Via Natural or Artificial Opening Endoscopic, Diagnostic (ICD-10-PCS; principal; 2023-06-10 16:30)
DX: K25.4 Chronic or unspecified gastric ulcer with hemorrhage (principal); D62 Acute posthemorrhagic anemia; I10 Essential (primary) hypertension; D50.9 Iron deficiency anemia, unspecified; D72.829 Elevated white blood cell count, unspecified; F17.210 Nicotine dependence, cigarettes, uncomplicated; D45 Polycythemia vera; I65.29 Occlusion and stenosis of unspecified carotid artery; E78.5 Hyperlipidemia, unspecified; K21.9 Gastro-esophageal reflux disease without esophagitis; I25.10 Atherosclerotic heart disease of native coronary artery without angina pectoris; J43.9 Emphysema, unspecified; I95.9 Hypotension, unspecified; E86.1 Hypovolemia; K44.9 Diaphragmatic hernia without obstruction or gangrene; F12.90 Cannabis use, unspecified, uncomplicated; E66.9 Obesity, unspecified; M19.90 Unspecified osteoarthritis, unspecified site; E89.0 Postprocedural hypothyroidism; I48.0 Paroxysmal atrial fibrillation; Z88.5 Allergy status to narcotic agent; Z79.899 Other long term (current) drug therapy; Z79.82 Long term (current) use of aspirin; Z86.73 Personal history of transient ischemic attack (TIA), and cerebral infarction without residual deficits; I25.2 Old myocardial infarction; Z90.89 Acquired absence of other organs; Z98.890 Other specified postprocedural states; Z71.6 Tobacco abuse counseling; Z68.29 Body mass index [BMI] 29.0-29.9, adult
CPT/HCPCS: 36415; 36430; 71045; 80047; 80048; 80069; 84443; 85014; 85018; 85025; 85027; 85610; 85730; 86850; 86900; 86901; 86923; 88305; 88342; 93005; 93010; 96374; 96375; 99285-25; A9270; C1751; C9113; J0171; J1430; J2405; J2704; J7030; J7050; J7120; P9016

== ENCOUNTER 2023-06-13 01:08 | Observation (INO) | payer OTHER ==
[2023-06-13] VITALS (27 sets, daily range): BP systolic 83–163; BP diastolic 57–127
[~2023-06-13] VITALS: Ht 177.8 cm; Wt 90.6 kg
[~2023-06-13 01:08] MED LIST changes: +HYDURE500 PO; +PANT40 PO
[2023-06-13 02:05] LABS: Calcium, Ionized (POC) 1.14 mmol/L (1.10-1.46); Chloride (POC) 103 mmol/L (98-108); Creatinine (POC) 0.8 mg/dL (0.6-1.0); Glucose (ISTAT POC) 170 mg/dL (70-99); Hemoglobin (POC) 9.5 g/dL (12.0-16.0); Potassium (POC) 3.2 mmol/L (3.5-5.5); Sodium (POC) 134 mmol/L (135-148); Total CO2 (POC) 20 mmol/L (21-32)
[2023-06-13 02:06] LABS: Albumin, Blood 3.2 g/dL (3.4-5.0); Albumin/Globulin Ratio 0.9 (0.8-1.8); Bilirubin, Total 1.2 mg/dL (0.1-1.0); Bun/Creatinine Ratio 24.3 (12.0-20.0); Calcium, Blood 8.3 mg/dL (8.5-10.1); Creatinine, Blood 0.7 mg/dL (0.40-1.00); Globulin, Blood 3.4 g/dL (2.2-4.0); Potassium, Blood 3.3 mmol/L (3.5-5.5); Total Protein, Blood 6.6 g/dL (6.4-8.2)
[2023-06-13 02:07] LABS: BASOPHILS ABSOLUTE AUTO 0.15 K/mm3 (0.00-0.23); BASOPHILS PERCENT AUTO 1 % (0-2); EOSINOPHILS ABSOLUTE AUTO 0.18 K/mm3 (0.00-0.68); EOSINOPHILS PERCENT AUTO 1 % (0-6); Hematocrit 26.5 % (33.0-51.0); Hemoglobin 8.6 g/dL (11.5-16.0); IMMATURE GRAN ABSOLUTE AUTO 0.49 K/mm3 (0.00-0.10); IMMATURE GRAN PERCENT AUTO 3 % (0-1); LYMPHOCYTES ABSOLUTE AUTO 0.95 K/mm3 (0.84-5.20); LYMPHOCYTES PERCENT AUTO 5 % (21-46); MONOCYTES ABSOLUTE AUTO 0.83 K/mm3 (0.16-1.47); MONOCYTES PERCENT AUTO 4 % (4-13); Mean Corpuscular HGB 32.6 pg (26.0-34.0); Mean Corpuscular HGB Conc 32.5 g/dL (31.5-36.5); Mean Corpuscular Volume 100 fL (80-100); Mean Platelet Volume 10.5 fL (9.1-12.4); NEUTROPHILS ABSOLUTE AUTO 17.03 K/mm3 (1.96-9.15); NEUTROPHILS PERCENT AUTO 87 % (41-73); NRBC ABSOLUTE 0.04 K/mm3 (0.00-0.02); NRBC Auto 0.2 /100 WBC (0.0-0.2); Platelet Count 492 K/mm3 (150-400); RDW Coefficient Variation 25.5 % (11.7-14.2); Red Blood Cell Count 2.64 M/mm3 (3.80-5.20); White Blood Cell Count 19.63 K/mm3 (4.00-11.30)
[2023-06-13 02:18] LABS: International Normalized Ratio 1.17; Prothrombin Time Results 12.2 Sec (9.7-11.5)
[2023-06-13 05:13] LABS: BASOPHILS ABSOLUTE AUTO 0.12 K/mm3 (0.00-0.23); BASOPHILS PERCENT AUTO 1 % (0-2); EOSINOPHILS ABSOLUTE AUTO 0.33 K/mm3 (0.00-0.68); EOSINOPHILS PERCENT AUTO 2 % (0-6); Hemoglobin 8.1 g/dL (11.5-16.0); IMMATURE GRAN ABSOLUTE AUTO 0.29 K/mm3 (0.00-0.10); IMMATURE GRAN PERCENT AUTO 2 % (0-1); LYMPHOCYTES PERCENT AUTO 8 % (21-46); MONOCYTES ABSOLUTE AUTO 0.91 K/mm3 (0.16-1.47); MONOCYTES PERCENT AUTO 5 % (4-13); Mean Corpuscular HGB 32.3 pg (26.0-34.0); Mean Corpuscular HGB Conc 32.4 g/dL (31.5-36.5); Mean Corpuscular Volume 100 fL (80-100); Mean Platelet Volume 10.3 fL (9.1-12.4); NEUTROPHILS ABSOLUTE AUTO 15.22 K/mm3 (1.96-9.15); NEUTROPHILS PERCENT AUTO 83 % (41-73); NRBC ABSOLUTE 0.04 K/mm3 (0.00-0.02); NRBC Auto 0.2 /100 WBC (0.0-0.2); Platelet Count 441 K/mm3 (150-400); RDW Coefficient Variation 25.2 % (11.7-14.2); RDW Standard Deviation 87.2 fL (35.1-46.3); Red Blood Cell Count 2.51 M/mm3 (3.80-5.20); White Blood Cell Count 18.37 K/mm3 (4.00-11.30)
[2023-06-13 05:38] LABS: Anion Gap 5 mmol/L (6-16); Blood Urea Nitrogen 15 mg/dL (8-24); CHOL/HDL RATIO 2.2; CO2, Blood 24 mmol/L (21-32); Chloride, Blood 108 mmol/L (98-108); Cholesterol 72 mg/dL (50-200); Creatinine, Blood 0.65 mg/dL (0.40-1.00); Glomerular Filtration Rate 99 (60-); Glucose, Blood 121 mg/dL (70-99); HDL Cholesterol 32 mg/dL (>39); LDL/HDL RATIO 0.8; Low Density Lipoprotein Chol 26 mg/dL (0-110); Potassium, Blood 3.4 mmol/L (3.5-5.5); Sodium, Blood 137 mmol/L (136-145); Triglycerides 71 mg/dL (30-160); Very Low Density Lipoprot Chol 14 mg/dL (6-32)
--- NOTE | 2023-06-13 06:00 | NUR ---
ADMIT TO ICU 11: PT ARRIVED TO THE UNIT FROM THE BOTTOM LINER AT 0445 POST PCI FOR STEMI. PT HAS TR BAND TO RIGHT RADIAL ACCESS SITE THAT IS WITHOUT BLEEDING OR HEMATOMA PRESENT. PT PULSE STRONG IN AFFECTED LIMB; PT EDUCATED ON IMPORTANCE OF KEEPING R. WRIST STRAIGHT AND NOT PUTTING WEIGHT ON IT. PT ARRIVES A&O X 4, PLEASANT AND COOPERATIVE WITH CARE. PT ON RA WITH LUNG SOUNDS CLEAR THROUGHOUT AND SPO2 100. PT SR ON MONITOR WITH HR 70'S AND SBP 150-160; PT DENIES ANY CHEST PAIN OR SOB AT THIS TIME. HYPOACTIVE BOWEL SOUNDS NOTED, NO N/V AND PT TOLERATING PO INTAKE. PPP X 4, SKIN OVERALL INTACT, WARM. PT DAUGHTER, MIKE, AT BEDSIDE DURING ADMISSION AND HELPED ANSWER QUESTIONS. PT USING BEDPAN FOR VOIDING; PT ON ORAL CHEMO THAT IS EXCRETED IN URINE. BED LOWERED, CALL LIGHT IN REACH.
--- NOTE | 2023-06-13 11:14 | NUR ---
Assumed care at approximately 0700. Bedside report received from nightshift RN. Pt resting in bed at time of report. Alert and oriented, on RA. TR band in place over R/radial access site, no bleeding, swelling noted. Some minor bruising around site. Pt denied needs at time of report, VS stable, will continue to monitor.
[2023-06-13] MEDS ORDERED: CARV6.25 PO (15:37)
[2023-06-13] MEDS ORDERED: CLOP75 PO (15:37)
[2023-06-13] MEDS ORDERED: FURO20 PO (15:38)
--- NOTE | 2023-06-13 15:58 | NUR ---
TR BAND SUMMARY. 0730 -2ML AIR 0745 -2ML AIR 0800 -2ML AIR 0810 BLEEDING NOTED AT SITE, CLEANED AND REINFLATED TR BAND TO 14 ML AIR. 1000 -2ML AIR 1050 -1ML AIR 1140 -1ML AIR 1225 DEFLATED TR BAND, LEFT IN PLACE 1430, NO BLEEDING/SWELLING/ECCYMOSIS AT SITE, REMOVED TR BAND. ARMBOARD LEFT IN PLACE. PT VERBALIZED UNDERSTANDING OF LEAVING ARMBOARD IN PLACE UNITL 24 HOURS AFTER BLEEDING STOPPED.
--- NOTE | 2023-06-13 16:02 | NUR ---
Pt discharged at 1450. Pt verbalized understanding of all discharge instructions. All personal belongings sent home w/patient. Pt ambulated out of unit w/daughter.
--- NOTE | 2023-06-13 17:06 | NUR ---
Met with patient to review needs. She was very excited to be going home. pt was talking rapidly about several subjects and anxious. She is worried about her medications. Pt somewhat repetative. tried to speak with her about future care needs, however she kept changing the subject. updated Dr. Oneal about her future needs. She should have chronic team see her. Will attempt a follow up call. Sheis high risk for readmission.
== END 2023-06-13 16:08 | disposition home or self-care (01) ==
LOC: ER 01:08 → ICUE 01:09 → ER 02:38 → ICUE 03:25
PROVIDERS: Emergency Medicine; ADMIT Internal Medicine Cardiovascular Disease
DX: I21.11 ST elevation (STEMI) myocardial infarction involving right coronary artery (principal); D64.9 Anemia, unspecified; J44.9 Chronic obstructive pulmonary disease, unspecified; K25.9 Gastric ulcer, unspecified as acute or chronic, without hemorrhage or perforation; E87.6 Hypokalemia; E03.9 Hypothyroidism, unspecified; Z72.0 Tobacco use; Z88.5 Allergy status to narcotic agent; Z95.5 Presence of coronary angioplasty implant and graft; I25.10 Atherosclerotic heart disease of native coronary artery without angina pectoris; Z86.73 Personal history of transient ischemic attack (TIA), and cerebral infarction without residual deficits; I25.2 Old myocardial infarction
CPT/HCPCS: 36415; 71045; 76937; 80047; 80048; 80053; 80061; 83036; 83880; 84484; 85014; 85025; 85347; 85610; 86850; 86900; 86901; 92920; 93005; 93010; 93306; 93458; 96374; 99152; 99153; 99291-25; A9270; C1725; C1769; C1887; C1894; G0378; J1644; J2250; J3010; J7030; J7050; Q9967

== ENCOUNTER 2025-01-27 07:41 | Inpatient (IN) | payer MEDICARE, OTHER ==
[~2025-01-27] VITALS: Ht 172.7 cm; Wt 81.0 kg
[~2025-01-27 07:41] MED LIST changes: +CARV6.25 PO; +CLOP75 PO; +FURO20 PO
[2025-01-27] MEDS ORDERED: EUTHYROX175 MCG PO (08:20)
[2025-01-27] MEDS ORDERED: METO50ER PO (08:21)
[2025-01-27] MEDS ORDERED: ELIQUIS5 M2 PO (08:21)
[2025-01-27] MEDS ORDERED: FentaNYL Citrate 50 MCG/ML 2 ML Injection IV ONE (08:35)
[2025-01-27] MEDS ORDERED: NS 1,000 ML IV SCH ×2 (08:35→13:00)
[2025-01-27] MEDS ORDERED: Ondansetron HCl 2 MG / ML 2ML Vial IV ONE (08:35)
[2025-01-27 08:58] LABS: Source, Urine Clean Catch
[2025-01-27 09:02] LABS: BASOPHILS ABSOLUTE AUTO 0.19 K/mm3 (0.00-0.23); BASOPHILS PERCENT AUTO 1 % (0-2); EOSINOPHILS ABSOLUTE AUTO 0.36 K/mm3 (0.00-0.68); EOSINOPHILS PERCENT AUTO 2 % (0-6); Hematocrit 53.1 % (33.0-51.0); Hemoglobin 16.2 g/dL (11.5-16.0); IMMATURE GRAN ABSOLUTE AUTO 0.16 K/mm3 (0.00-0.10); IMMATURE GRAN PERCENT AUTO 1 % (0-1); LYMPHOCYTES ABSOLUTE AUTO 0.88 K/mm3 (0.84-5.20); LYMPHOCYTES PERCENT AUTO 6 % (21-46); MONOCYTES PERCENT AUTO 3 % (4-13); Mean Corpuscular HGB 27.5 pg (26.0-34.0); Mean Corpuscular HGB Conc 30.5 g/dL (31.5-36.5); Mean Corpuscular Volume 90 fL (80-100); Mean Platelet Volume 10.1 fL (9.1-12.4); NEUTROPHILS ABSOLUTE AUTO 13.06 K/mm3 (1.96-9.15); NEUTROPHILS PERCENT AUTO 87 % (41-73); Platelet Count 362 K/mm3 (150-400); RDW Coefficient Variation 19.1 % (11.7-14.2); RDW Standard Deviation 62.3 fL (35.1-46.3); White Blood Cell Count 15.05 K/mm3 (4.00-11.30)
[2025-01-27 09:03] LABS: Appearance, Urine Clear (Clear); Bilirubin, Urine Neg (Neg); Blood, Urine Neg (Neg); Color, Urine Yellow (P-Yellow); Glucose Qualitative, Urine Neg (Neg); Ketones, Urine Neg (Neg); Leukocyte Esterase, Urine Neg (Neg); Nitrite, Urine Neg (Neg); Protein, Urine 1+ (Neg); Specific Gravity, Urine 1.015 (1.003-1.022); Urobilinogen, Urine NORM (Normal)
[2025-01-27 09:24] LABS: Albumin, Blood 3.1 g/dL (3.4-5.0); Albumin/Globulin Ratio 0.7 (0.8-1.8); Bilirubin, Total 0.5 mg/dL (0.1-1.0); Bun/Creatinine Ratio 14.3 (12.0-20.0); Calcium, Blood 8.8 mg/dL (8.5-10.1); Creatinine, Blood 0.98 mg/dL (0.40-1.00); Globulin, Blood 4.5 g/dL (2.2-4.0); Potassium, Blood 4.3 mmol/L (3.5-5.5); Total Protein, Blood 7.6 g/dL (6.4-8.2)
[2025-01-27] MEDS ORDERED: OxyCODONE 5 mg/Acetamin 325 mg TABLET PO ONE (10:10)
[2025-01-27] MEDS ORDERED: Bisacodyl 10 MG Supp PR PRN (12:30)
[2025-01-27] MEDS ORDERED: Magnesium Hydroxide Conc 10 ML UDC PO PRN (12:30)
[2025-01-27] MEDS ORDERED: Ondansetron 4 MG TAB PO PRN (12:35)
[2025-01-27] MEDS ORDERED: TraZODone HCl 50 MG Tab PO PRN (12:35)
[2025-01-27] MEDS ORDERED: CefTRIAXone Sodium 2,000 MG in NS 100 ML IV SCH ×2 (13:00→14:00)
[2025-01-27] MEDS ORDERED: HydrALAZINE HCl 20 MG / ML 1ML Vial IV PRN (13:25)
[2025-01-27] MEDS ORDERED: Acetaminophen 325 MG TABLET PO PRN (15:15)
[2025-01-27] MEDS ORDERED: OxyCODONE HCL 5 MG TAB PO PRN (15:15)
[2025-01-27 15:52] LABS: Triglycerides 156 mg/dL (30-160)
[2025-01-27 16:01] VITALS: BP 189/97
[2025-01-27 16:24] VITALS: BP 175/97
--- NOTE | 2025-01-27 18:10 | NUR ---
A&OX4, FULL CODE, TELE SINUS LUCIAN HR@62, NPO & DR. RAMIREZ CONSULT, IV LEFT FOREARM WITH NS INFUSING, INDEPENDENT IN ROOM, BP & PAIN ELEVATED & MEDICATION ADMINSTERED PER EMAR, NO OTHER CONCERNS AT THIS TIME.
--- NOTE | 2025-01-27 18:59 | NUR ---
REVIEWED ADMISSION ASSESSMENT, HISTORY AND MED REC THAT WAS CHARTED BY LEIF EM, STUDENT NURSE AND I AGREE WITH HER DOCUMENTATION FOR THIS PATIENT.
[2025-01-27 19:21] VITALS: BP 143/82
[2025-01-27 19:23] VITALS: BP 136/82
[2025-01-27] MEDS ORDERED: Famotidine 20 MG Tab PO SCH (21:00)
[2025-01-27] MEDS ORDERED: Lactobacil 2-S.Thermo-Bifido 1 1 Cap PO SCH (21:00)
[2025-01-27 23:51] VITALS: BP 133/86
[2025-01-28 04:02] VITALS: BP 163/91
--- NOTE | 2025-01-28 04:31 | NUR ---
SHIFT SUMMARY; PATIENT SLEPT IN LONG INTERVALS, MEDICATED TWICE FOR PAIN. TELE SB 52. FEW ICE CHIPS GIVEN. NO NAUSEA OR EMESIS THIS SHIFT. ABLE TO WALK TO [facility] SB ASSIST.
[2025-01-28 05:51] LABS: BASOPHILS PERCENT AUTO 1 % (0-2); EOSINOPHILS ABSOLUTE AUTO 0.18 K/mm3 (0.00-0.68); EOSINOPHILS PERCENT AUTO 1 % (0-6); Hematocrit 50.5 % (33.0-51.0); Hemoglobin 15.1 g/dL (11.5-16.0); IMMATURE GRAN ABSOLUTE AUTO 0.19 K/mm3 (0.00-0.10); IMMATURE GRAN PERCENT AUTO 1 % (0-1); LYMPHOCYTES ABSOLUTE AUTO 0.73 K/mm3 (0.84-5.20); LYMPHOCYTES PERCENT AUTO 5 % (21-46); MONOCYTES PERCENT AUTO 3 % (4-13); Mean Corpuscular HGB 26.7 pg (26.0-34.0); Mean Corpuscular HGB Conc 29.9 g/dL (31.5-36.5); Mean Corpuscular Volume 89 fL (80-100); Mean Platelet Volume 10.2 fL (9.1-12.4); NEUTROPHILS ABSOLUTE AUTO 14.66 K/mm3 (1.96-9.15); NEUTROPHILS PERCENT AUTO 90 % (41-73); Platelet Count 251 K/mm3 (150-400); RDW Coefficient Variation 19.3 % (11.7-14.2); RDW Standard Deviation 62.2 fL (35.1-46.3); Red Blood Cell Count 5.66 M/mm3 (3.80-5.20); White Blood Cell Count 16.26 K/mm3 (4.00-11.30)
[2025-01-28 05:56] LABS: International Normalized Ratio 1.31; Prothrombin Time Results 14.1 Sec (9.7-11.5)
[2025-01-28] MEDS ORDERED: Pantoprazole Sodium 40 MG Tab PO SCH (06:00)
[2025-01-28] MEDS ORDERED: Levothyroxine Sodium 0.175 MG TAB PO SCH (06:00)
[2025-01-28 06:16] LABS: Bun/Creatinine Ratio 13.2 (12.0-20.0); Calcium, Blood 8.3 mg/dL (8.5-10.1); Creatinine, Blood 0.83 mg/dL (0.40-1.00); Magnesium, Blood 1.9 mg/dL (1.6-2.4); Potassium, Blood 4.3 mmol/L (3.5-5.5)
[2025-01-28 08:00] VITALS: BP 137/70
[2025-01-28] MEDS ORDERED: Atorvastatin 40 MG Tab PO SCH (09:00)
[2025-01-28] MEDS ORDERED: Enoxaparin 40 MG/0.4 ML SYR SC SCH (09:00)
[2025-01-28] MEDS ORDERED: Metoprolol Succinate 25 MG TABCR PO SCH (09:00)
[2025-01-28 09:03] VITALS: BP 137/103
[2025-01-28] MEDS ORDERED: Diltiazem HCl 5 MG / ML 5ML Vial IV ONE (09:35)
[2025-01-28] MEDS ORDERED: dilTIAZem HCL 125 MG in Dextrose 5% 100 ML IV SCH (09:40)
[2025-01-28] MEDS ORDERED: NS 1,000 ML IV SCH (12:15)
[2025-01-28] MEDS ORDERED: Dose Adjust by Pharmacy XX STA (13:28)
[2025-01-28] MEDS ORDERED: Heparin Sodium,Porcine/0.5 NS 500 ML IV SCH (13:30)
[2025-01-28 16:03] VITALS: BP 141/69
--- NOTE | 2025-01-28 19:07 | NUR ---
ALERT AND ORIENTED X4, CLEARLY MAKES NEEDS KNOWN, HEART WENT INTO AFIB ABOUT 1100 AND SWITCHED BACK TO NSR AT 1500, NPO AT MIDNIGHT FOR DR RUBIO TO PLACE A PACEMAKER TOMORROW. PATIENT TO FOLLOW UP AFTER HEALED FROM PACER BEING PLACED TO DEAL WITH THE PANCREATITIS VS GALLBLADDER. NAUSEATED AND VOMITED X2 THIS SHIFT MEDICATED WITH ZOFRAN, CALL LIGHT WITH IN REACH
[2025-01-28 20:22] VITALS: BP 152/86
[2025-01-28 23:47] VITALS: BP 135/77
[2025-01-29] VITALS (12 sets, daily range): BP systolic 92–159; BP diastolic 60–116
[2025-01-29 01:43] LABS: Albumin, Blood 2.6 g/dL (3.4-5.0); Albumin/Globulin Ratio 0.7 (0.8-1.8); Bilirubin, Total 0.4 mg/dL (0.1-1.0); Bun/Creatinine Ratio 16.5 (12.0-20.0); Calcium, Blood 8.1 mg/dL (8.5-10.1); Creatinine, Blood 0.79 mg/dL (0.40-1.00); Globulin, Blood 3.5 g/dL (2.2-4.0); Potassium, Blood 4.1 mmol/L (3.5-5.5); Total Protein, Blood 6.1 g/dL (6.4-8.2)
[2025-01-29 01:50] LABS: BASOPHILS PERCENT AUTO 1 % (0-2); EOSINOPHILS ABSOLUTE AUTO 0.11 K/mm3 (0.00-0.68); EOSINOPHILS PERCENT AUTO 1 % (0-6); Hematocrit 49.2 % (33.0-51.0); Hemoglobin 15.2 g/dL (11.5-16.0); IMMATURE GRAN PERCENT AUTO 2 % (0-1); LYMPHOCYTES ABSOLUTE AUTO 0.91 K/mm3 (0.84-5.20); LYMPHOCYTES PERCENT AUTO 4 % (21-46); MONOCYTES ABSOLUTE AUTO 0.62 K/mm3 (0.16-1.47); MONOCYTES PERCENT AUTO 3 % (4-13); Mean Corpuscular HGB 27.6 pg (26.0-34.0); Mean Corpuscular HGB Conc 30.9 g/dL (31.5-36.5); Mean Corpuscular Volume 90 fL (80-100); Mean Platelet Volume 10.2 fL (9.1-12.4); NEUTROPHILS ABSOLUTE AUTO 18.57 K/mm3 (1.96-9.15); NEUTROPHILS PERCENT AUTO 90 % (41-73); Platelet Count 214 K/mm3 (150-400); RDW Coefficient Variation 19.3 % (11.7-14.2); White Blood Cell Count 20.61 K/mm3 (4.00-11.30)
[2025-01-29] MEDS ORDERED: Dose Adjust by Pharmacy XX STA (01:54)
[2025-01-29] MEDS ORDERED: Heparin Sodium 5000 Units/ML 1ML MDV IV ONE (01:55)
--- NOTE | 2025-01-29 04:01 | NUR ---
SHIFT SUMMARY PATIENT HAD NO ACUTE CHANGES. ALERT ORIENTED AND 2 ASSIST TO BSC. STATING 87-90% ON ROOM AIR. DROPPING TO 87-88% SLEEPING. PLACED ON 2L O2 NC AND STATING 95%. DENIES CHEST PAIN, SOB, AND N/V. VSS/AFEBRILE. PIV INTACT. HEPARIN INFUSING @ 17 UNITS AND 25.8 mL/HR MANAGED BY PHARMACY. ORDER TO STOP HEPARIN @ 05:OO TODAY 01/29. NS INFUSING @ 75mL/HR. REPORTED ABDOMEN PAIN AND OXYCODONE 5 MG GIVEN AND LATER TYLENOL 650 MG PER EMAR. TRAZADONE 25 MG GIVEN FOR INSOMNIA. TELE MONITOR AFIB 65. CALL LIGHT IN REACH. BED IN LOWEST POSITION. WILL CONTINUE TO MONITOR UNTIL DAY SHIFT NURSE ASSUMES CARE.
[2025-01-29] MEDS ORDERED: CeFAZolin Sodium 1000 mg Vial ONE (08:26)
[2025-01-29] MEDS ORDERED: NS 1,000 ML IV ONE ×2 (08:27→08:47)
[2025-01-29] MEDS ORDERED: Bupivacaine 0.5% HCl 5 MG/ML 30MLVIAL ONE (08:27)
[2025-01-29] MEDS ORDERED: Heparin Sodium 1000 Units/ML 10ML MDV ONE (08:27)
[2025-01-29] MEDS ORDERED: FentaNYL Citrate 50 MCG/ML 2 ML Injection ONE ×2 (08:46→09:38)
[2025-01-29] MEDS ORDERED: CeFAZolin Sodium 2,000 MG VIAL ONE (08:46)
[2025-01-29] MEDS ORDERED: Midazolam HCl 1MG / ML 2ML Vial ONE ×2 (08:46→09:37)
[2025-01-29] MEDS ORDERED: NS 100 ML IV ONE ×2 (08:47→12:36)
[2025-01-29] MEDS ORDERED: CeFAZolin Sodium 2,000 MG in NS 100 ML IV SCH ×2 (09:00→18:00)
--- NOTE | 2025-01-29 10:36 | NUR ---
0905 TO SURGERY FOR PACEMAKER PLACEMENT, PATIENT TO RETURN TP PCU 16 FOR RECOVERY, TRANSFER OF CARE REPORT TO GIUSEPPE [facility] PCU, FAMILY IN FORMED
[2025-01-29] MEDS ORDERED: Acetaminophen 325 MG TABLET PO PRN (10:55)
[2025-01-29] MEDS ORDERED: Metoprolol Succinate 25 MG TABCR PO SCH (11:00)
[2025-01-29] MEDS ORDERED: Ipratropium/Albuterol SulF 2.5-0.5MG/3 ML Amp INH SCH (16:15)
--- NOTE | 2025-01-29 16:36 | NUR ---
SHIFT SUMMARY PT TRANSFERRED TO PCU 16 S/P PACEMAKER PLACEMENT - SITE TO LEFT CHEST WALL WITH DRESSING INTACT, NO BLEEDING/DRAINAGE, MINIMAL SWELLING - SITE SUTURED. A/O X4, AFEBRILE. PACING AT 60, BP WITHIN PARAMETERS. HEART HEALTHY DIET FOR LUNCH AND DINNER, CLEAR LIQUIDS FOR BREAKFAST IN THE MORNING DR. RAMIREZ MAY TAKE PT TO OR FOR GALL BLADDER REMOVAL. NO BM THROUGH SHIFT. 2 UNMEASURED URINATION. PUREWICK INTACT AND IN PLACE. PIV X 2 SALINE LOCKED. PT LEFT ARM IN SLING - ORDERS TO MAINTAIN LEFT ARM BETWEEN LOWER XYPHOID PROCESS TO PUBIC AREA FOR 24 HOURS POST PROCEDURE. FAMILY UPDATED AND AT BEDSIDE. DISCUSSED PULMONARY CONGESTION AND WHEEZING WITH DR. NORIEGA - NEBULIZER TXS ORDERED. INCENTIVE SPIROMETRY PLACED AT BEDSIDE AND PT INSTRUCTED ON USE. SAFETY, COMFORT, HYGIENE ADDRESSED. NO NEEDS AT THIS TIME.
--- NOTE | 2025-01-29 23:24 | NUR ---
PT EDUCATED ON DEEP BREATHS AND COUGH, INCENTIVE SPIROMETER USE, FLUTTER VALVE AND RISK OF PNEUMONIA EDUCATION REINFORCED WITH RESPIRATORY THERAPIST.
[2025-01-30 03:05] VITALS: BP 151/78
[2025-01-30 03:19] LABS: Hematocrit 44.9 % (33.0-51.0); Hemoglobin 13.8 g/dL (11.5-16.0); Mean Corpuscular HGB 27.5 pg (26.0-34.0); Mean Corpuscular HGB Conc 30.7 g/dL (31.5-36.5); Mean Corpuscular Volume 89 fL (80-100); Platelet Count 182 K/mm3 (150-400); RDW Coefficient Variation 19.5 % (11.7-14.2); RDW Standard Deviation 62.4 fL (35.1-46.3); Red Blood Cell Count 5.02 M/mm3 (3.80-5.20); White Blood Cell Count 18.77 K/mm3 (4.00-11.30)
[2025-01-30 04:00] LABS: Albumin, Blood 2.3 g/dL (3.4-5.0); Albumin/Globulin Ratio 0.7 (0.8-1.8); Bilirubin, Total 0.3 mg/dL (0.1-1.0); Bun/Creatinine Ratio 15.7 (12.0-20.0); Calcium, Blood 8.5 mg/dL (8.5-10.1); Creatinine, Blood 0.83 mg/dL (0.40-1.00); Globulin, Blood 3.5 g/dL (2.2-4.0); Potassium, Blood 4.2 mmol/L (3.5-5.5); Total Protein, Blood 5.8 g/dL (6.4-8.2)
[2025-01-30 07:48] VITALS: BP 145/92
[2025-01-30] MEDS ORDERED: PredniSONE 20 MG Tab PO SCH (09:00)
[2025-01-30] MEDS ORDERED: Aspirin 81 MG TabEC PO SCH (09:00)
[2025-01-30] MEDS ORDERED: Apixaban 5 MG Tab PO SCH (11:00)
[2025-01-30 11:18] VITALS: BP 148/79
[2025-01-30 15:56] VITALS: BP 118/77
--- NOTE | 2025-01-30 18:30 | NUR ---
SHIFT SUMMARY: PT A&OX4 CALM AND COOPERATIVE. ABLE TO MAKE NEEDS KNOWN AND CALLS APPROPRAITELY. HR PACED AT 60S. VSS ON RA. LEFT ARM RESTRICTION S/P PACEMAKER PLACEMENT. PT REPORTS NO RUQ TENDERNESS. PT TOLERATED HEART HEALTHY DIET. INDEPENDENT IN ROOM. L AC AND R POWERGLIDE. PLAN IS TO POSSIBLY D/C TOMORROW FOLLOW-UP WITH SURGICAL OUTPATIENT AND CARDIO CLINIC THIS WEEK. WILL CONTINUE PLAN OF CARE TILL REPORT GIVEN TO NOC NURSE.
[2025-01-30 19:47] VITALS: BP 145/80
[2025-01-30] MEDS ORDERED: Metoprolol Succinate 50 MG TABCR PO SCH (21:00)
[2025-01-30 23:31] VITALS: BP 170/88
[2025-01-31 04:49] VITALS: BP 147/78
[2025-01-31 05:09] LABS: BASOPHILS ABSOLUTE AUTO 0.11 K/mm3 (0.00-0.23); BASOPHILS PERCENT AUTO 1 % (0-2); EOSINOPHILS ABSOLUTE AUTO 0.23 K/mm3 (0.00-0.68); EOSINOPHILS PERCENT AUTO 1 % (0-6); Hematocrit 42.1 % (33.0-51.0); Hemoglobin 13.4 g/dL (11.5-16.0); IMMATURE GRAN ABSOLUTE AUTO 0.19 K/mm3 (0.00-0.10); IMMATURE GRAN PERCENT AUTO 1 % (0-1); LYMPHOCYTES ABSOLUTE AUTO 1.08 K/mm3 (0.84-5.20); LYMPHOCYTES PERCENT AUTO 6 % (21-46); MONOCYTES PERCENT AUTO 3 % (4-13); Mean Corpuscular HGB 27.7 pg (26.0-34.0); Mean Corpuscular HGB Conc 31.8 g/dL (31.5-36.5); Mean Corpuscular Volume 87 fL (80-100); NEUTROPHILS ABSOLUTE AUTO 15.42 K/mm3 (1.96-9.15); NEUTROPHILS PERCENT AUTO 88 % (41-73); Platelet Count 183 K/mm3 (150-400); RDW Coefficient Variation 19.3 % (11.7-14.2); RDW Standard Deviation 61.4 fL (35.1-46.3); Red Blood Cell Count 4.84 M/mm3 (3.80-5.20); White Blood Cell Count 17.63 K/mm3 (4.00-11.30)
[2025-01-31 05:31] LABS: Albumin, Blood 2.3 g/dL (3.4-5.0); Albumin/Globulin Ratio 0.7 (0.8-1.8); Bilirubin, Total 0.4 mg/dL (0.1-1.0); Bun/Creatinine Ratio 21.2 (12.0-20.0); Calcium, Blood 8.5 mg/dL (8.5-10.1); Creatinine, Blood 0.66 mg/dL (0.40-1.00); Globulin, Blood 3.5 g/dL (2.2-4.0); Potassium, Blood 3.6 mmol/L (3.5-5.5); Total Protein, Blood 5.8 g/dL (6.4-8.2)
--- NOTE | 2025-01-31 06:15 | NUR ---
SHIFT SUMMARY ONE EPISODE OF HTN, WHERE 20 OF HYDRALAZINE WAS GIVEN. NO OTHER ACUTE EVENTS.
[2025-01-31 07:18] VITALS: BP 187/97
[2025-01-31] MEDS ORDERED: Diltiazem HCl 180 MG Cap.CD PO SCH (09:00)
[2025-01-31 11:44] VITALS: BP 128/75
[2025-01-31] MEDS ORDERED: MASOPHEN325 M3 PO (12:23)
[2025-01-31] MEDS ORDERED: DILT180 PO (12:24)
[2025-01-31] MEDS ORDERED: ASPIR 8181 M1 PO (12:24)
[2025-01-31] MEDS ORDERED: CEPH500 PO (12:25)
[2025-01-31] MEDS ORDERED: PROBIOTIC1 EA13 PO (12:25)
--- NOTE | 2025-01-31 17:43 | NUR ---
SHIFT SUMMARY: PT A&OX4 CALM AND COOPERATIVE. ABLE TO MAKE NEEDS KNOWN AND CALLS APPROPRIATELY. SBP ELEVATED 170S AFTER MORNING MEDICATIONS GIVEN MEDICATED PER PRN EMAR. SBP DECREASED TO 120S. HR PACED IN 60S. MAINTAINING >92% ON RA. LUE RESTRICTIONS S/P PACEMAKER PLACEMENT. PT C/O PAIN IN LEFT SHOULDER. MEDICATED PER EMAR. PT DISCHARGE WITH HOME HEALTH. DISCHARGE INSTRUCTIONS GIVEN TO PATIENT AND FAMILY IN ROOM. PT VERBALIZED UNDERSTANDING AND STATED NO FURTHER QUESTIONS. PT DISCHARGED UNIT WITH FAMILY MEMBER.
== END 2025-01-31 13:22 | disposition home health service (06) | DRG 982 ==
LOC: ER 07:41 → MEDS 12:27 → SURS 12:27 → MEDS 15:48 → PCU 01-29 11:28
PROVIDERS: Family Medicine; Internal Medicine Cardiovascular Disease; Student in an Organized Health Care Education/Training Program; Surgery; ADMIT Hospitalist
PROC: 0JH606Z Insertion of Pacemaker, Dual Chamber into Chest Subcutaneous Tissue and Fascia, Open Approach (ICD-10-PCS; principal; 2025-01-29)
PROC: 02H63JZ Insertion of Pacemaker Lead into Right Atrium, Percutaneous Approach (ICD-10-PCS; 2025-01-29)
PROC: 02HK3JZ Insertion of Pacemaker Lead into Right Ventricle, Percutaneous Approach (ICD-10-PCS; 2025-01-29)
DX: K85.10 Biliary acute pancreatitis without necrosis or infection (principal); E87.1 Hypo-osmolality and hyponatremia; I69.851 Hemiplegia and hemiparesis following other cerebrovascular disease affecting right dominant side; J44.1 Chronic obstructive pulmonary disease with (acute) exacerbation; I49.5 Sick sinus syndrome; I65.29 Occlusion and stenosis of unspecified carotid artery; I10 Essential (primary) hypertension; I48.0 Paroxysmal atrial fibrillation; K21.9 Gastro-esophageal reflux disease without esophagitis; I25.10 Atherosclerotic heart disease of native coronary artery without angina pectoris; E78.5 Hyperlipidemia, unspecified; F17.210 Nicotine dependence, cigarettes, uncomplicated; D45 Polycythemia vera; D72.829 Elevated white blood cell count, unspecified; J43.9 Emphysema, unspecified; E06.3 Autoimmune thyroiditis; I05.0 Rheumatic mitral stenosis; G47.33 Obstructive sleep apnea (adult) (pediatric); I27.20 Pulmonary hypertension, unspecified; Z90.89 Acquired absence of other organs; Z98.890 Other specified postprocedural states; Z79.01 Long term (current) use of anticoagulants; I25.2 Old myocardial infarction; Z79.890 Hormone replacement therapy; Z95.4 Presence of other heart-valve replacement; Z79.899 Other long term (current) drug therapy; Z85.818 Personal history of malignant neoplasm of other sites of lip, oral cavity, and pharynx; Z95.5 Presence of coronary angioplasty implant and graft; Z87.440 Personal history of urinary (tract) infections; Z86.79 Personal history of other diseases of the circulatory system; Z71.6 Tobacco abuse counseling
CPT/HCPCS: 33208; 36415; 71046; 74176; 76705; 76937; 80048; 80053; 83690; 83735; 84478; 85025; 85027; 85610; 85730; 93005; 93010; 93306; 94640; 94664; 94760; 94762; 96374; 96375; 99152; 99153; 99285-25; A9270; C1751; C1785; C1894; C1898; J0360; J0690; J0696; J1644; J2250; J2405; J3010; J7030; J7040; J7512; Q9967

== ENCOUNTER 2025-02-16 13:34 | Emergency (ER) | payer MEDICARE, OTHER ==
[~2025-02-16] VITALS: Ht 175.3 cm; Wt 79.4 kg
[~2025-02-16 13:34] MED LIST changes: +ASPIR 8181 M1 PO; +CEPH500 PO; +DILT180 PO; +ELIQUIS5 M2 PO; +EUTHYROX175 MCG PO; +MASOPHEN325 M3 PO; +METO50ER PO; +PROBIOTIC1 EA13 PO
[2025-02-16 14:38] LABS: BASOPHILS ABSOLUTE AUTO 0.18 K/mm3 (0.00-0.23); BASOPHILS PERCENT AUTO 1 % (0-2); EOSINOPHILS PERCENT AUTO 3 % (0-6); Hematocrit 47.4 % (33.0-51.0); Hemoglobin 14.4 g/dL (11.5-16.0); IMMATURE GRAN PERCENT AUTO 1 % (0-1); LYMPHOCYTES PERCENT AUTO 8 % (21-46); MONOCYTES ABSOLUTE AUTO 0.63 K/mm3 (0.16-1.47); MONOCYTES PERCENT AUTO 4 % (4-13); Mean Corpuscular HGB 27.3 pg (26.0-34.0); Mean Corpuscular HGB Conc 30.4 g/dL (31.5-36.5); Mean Corpuscular Volume 90 fL (80-100); Mean Platelet Volume 10.4 fL (9.1-12.4); NEUTROPHILS ABSOLUTE AUTO 14.62 K/mm3 (1.96-9.15); NEUTROPHILS PERCENT AUTO 83 % (41-73); Platelet Count 365 K/mm3 (150-400); RDW Standard Deviation 61.4 fL (35.1-46.3); Red Blood Cell Count 5.28 M/mm3 (3.80-5.20); White Blood Cell Count 17.53 K/mm3 (4.00-11.30)
[2025-02-16 15:25] LABS: Albumin, Blood 2.9 g/dL (3.4-5.0); Albumin/Globulin Ratio 0.6 (0.8-1.8); Bilirubin, Total 0.8 mg/dL (0.1-1.0); Bun/Creatinine Ratio 17.4 (12.0-20.0); Calcium, Blood 8.8 mg/dL (8.5-10.1); Creatinine, Blood 0.81 mg/dL (0.40-1.00); Globulin, Blood 4.5 g/dL (2.2-4.0); Total Protein, Blood 7.4 g/dL (6.4-8.2)
[2025-02-16 17:40] LABS: Albumin, Blood 2.9 g/dL (3.4-5.0); Albumin/Globulin Ratio 0.7 (0.8-1.8); Bilirubin, Total 0.5 mg/dL (0.1-1.0); Bun/Creatinine Ratio 15.9 (12.0-20.0); Calcium, Blood 8.9 mg/dL (8.5-10.1); Creatinine, Blood 0.88 mg/dL (0.40-1.00); Globulin, Blood 3.9 g/dL (2.2-4.0); Total Protein, Blood 6.8 g/dL (6.4-8.2)
[2025-02-16] MEDS ORDERED: CEPH500 PO (18:23)
[2025-02-16] MEDS ORDERED: Cephalexin Monohydrate 500 MG Cap PO ONE (18:25)
[2025-02-16 18:30] VITALS: BP 149/87
== END 2025-02-16 18:40 | disposition home or self-care (01) ==
LOC: ER 13:34
PROVIDERS: Physician Assistant
DX: L76.32 Postprocedural hematoma of skin and subcutaneous tissue following other procedure (principal); Y83.8 Other surgical procedures as the cause of abnormal reaction of the patient, or of later complication, without mention of misadventure at the time of the procedure; I48.91 Unspecified atrial fibrillation; I10 Essential (primary) hypertension; K21.9 Gastro-esophageal reflux disease without esophagitis; I25.10 Atherosclerotic heart disease of native coronary artery without angina pectoris; I25.2 Old myocardial infarction; E78.5 Hyperlipidemia, unspecified; E03.9 Hypothyroidism, unspecified; J43.9 Emphysema, unspecified; F17.200 Nicotine dependence, unspecified, uncomplicated; Z79.82 Long term (current) use of aspirin; Z79.899 Other long term (current) drug therapy
CPT/HCPCS: 36415; 71260; 80053; 83605; 85025; 87040; 93005; 93010; 99284-25; A9270; Q9967

== ENCOUNTER 2025-02-21 08:00 | Day surgery (SDC) | payer MEDICARE, OTHER | END 2025-02-21 23:00 | disposition home or self-care (01) | LOC: WOUND 08:00 | DX: S21.102A Unspecified open wound of left front wall of thorax without penetration into thoracic cavity, initial encounter (principal); T81.31XA Disruption of external operation (surgical) wound, not elsewhere classified, initial encounter; Z95.0 Presence of cardiac pacemaker; Z95.2 Presence of prosthetic heart valve; X58.XXXA Exposure to other specified factors, initial encounter | CPT/HCPCS: G0463 ==

== ENCOUNTER 2025-02-28 04:13 | Day surgery (SDC) | payer MEDICARE, OTHER | END 2025-02-28 23:00 | disposition home or self-care (01) | LOC: WOUND 04:13 | DX: S21.102A Unspecified open wound of left front wall of thorax without penetration into thoracic cavity, initial encounter (principal); T81.31XA Disruption of external operation (surgical) wound, not elsewhere classified, initial encounter; X58.XXXA Exposure to other specified factors, initial encounter | CPT/HCPCS: G0463 ==

== ENCOUNTER 2025-03-15 00:36 | Day surgery (SDC) | payer MEDICARE, OTHER ==
[2025-03-15] MEDS ORDERED: Lidocaine HCl 4% Cream 5 GM ONE (08:27)
== END 2025-03-15 23:09 | disposition home or self-care (01) ==
LOC: WOUND 00:36
DX: S20.212A Contusion of left front wall of thorax, initial encounter (principal); S21.102A Unspecified open wound of left front wall of thorax without penetration into thoracic cavity, initial encounter; Z95.0 Presence of cardiac pacemaker; Z95.2 Presence of prosthetic heart valve; X58.XXXA Exposure to other specified factors, initial encounter
CPT/HCPCS: 10140; A9270

== ENCOUNTER 2025-03-22 01:16 | Day surgery (SDC) | payer MEDICARE, OTHER ==
[2025-03-22] MEDS ORDERED: Lidocaine HCl 4% Cream 5 GM ONE (10:07)
== END 2025-03-22 23:00 | disposition home or self-care (01) ==
LOC: WOUND 01:16
DX: S20.212A Contusion of left front wall of thorax, initial encounter (principal); Z95.0 Presence of cardiac pacemaker; X58.XXXA Exposure to other specified factors, initial encounter
CPT/HCPCS: 10140; A9270

== ENCOUNTER 2025-04-14 02:09 | Day surgery (SDC) | payer MEDICARE, OTHER ==
[2025-04-14] MEDS ORDERED: Lidocaine HCl 4% Cream 5 GM ONE (11:00)
== END 2025-04-14 23:00 | disposition home or self-care (01) ==
LOC: WOUND 02:09
DX: S91.311A Laceration without foreign body, right foot, initial encounter (principal); X58.XXXA Exposure to other specified factors, initial encounter; Z95.0 Presence of cardiac pacemaker; Z95.2 Presence of prosthetic heart valve
CPT/HCPCS: A6213; A9270

== ENCOUNTER 2025-04-21 03:34 | Day surgery (SDC) | payer MEDICARE, OTHER ==
[2025-04-21] MEDS ORDERED: Lidocaine HCl 4% Cream 5 GM ONE (08:27)
== END 2025-04-21 23:04 | disposition home or self-care (01) ==
LOC: WOUND 03:34
DX: S91.311D Laceration without foreign body, right foot, subsequent encounter (principal); X58.XXXD Exposure to other specified factors, subsequent encounter; L97.512 Non-pressure chronic ulcer of other part of right foot with fat layer exposed; Z95.0 Presence of cardiac pacemaker; Z95.2 Presence of prosthetic heart valve; Z79.01 Long term (current) use of anticoagulants
CPT/HCPCS: A9270

== ENCOUNTER 2025-04-28 00:51 | Day surgery (SDC) | payer MEDICARE, OTHER ==
[2025-04-28] MEDS ORDERED: Lidocaine HCl 4% Cream 5 GM ONE (07:53)
== END 2025-04-28 23:00 | disposition home or self-care (01) ==
LOC: WOUND 00:51
DX: S91.311A Laceration without foreign body, right foot, initial encounter (principal); L97.512 Non-pressure chronic ulcer of other part of right foot with fat layer exposed; W22.03XA Walked into furniture, initial encounter
CPT/HCPCS: A9270

== ENCOUNTER 2025-05-09 02:35 | Day surgery (SDC) | payer MEDICARE, OTHER ==
[2025-05-09] MEDS ORDERED: Lidocaine HCl 4% Cream 5 GM ONE (13:42)
== END 2025-05-09 23:00 | disposition home or self-care (01) ==
LOC: WOUND 02:35
DX: L97.512 Non-pressure chronic ulcer of other part of right foot with fat layer exposed (principal); S91.311A Laceration without foreign body, right foot, initial encounter; X58.XXXA Exposure to other specified factors, initial encounter; Z95.0 Presence of cardiac pacemaker; Z95.2 Presence of prosthetic heart valve
CPT/HCPCS: A6213; A9270

== ENCOUNTER 2025-06-09 02:49 | Day surgery (SDC) | payer MEDICARE, OTHER ==
[2025-06-09] MEDS ORDERED: Lidocaine HCl 4% Cream 5 GM ONE (07:45)
== END 2025-06-09 23:00 | disposition home or self-care (01) ==
LOC: WOUND 02:49
DX: L97.512 Non-pressure chronic ulcer of other part of right foot with fat layer exposed (principal); Z79.01 Long term (current) use of anticoagulants; Z95.0 Presence of cardiac pacemaker; Z95.2 Presence of prosthetic heart valve
CPT/HCPCS: A6213; A9270

== ENCOUNTER 2025-06-16 00:13 | Day surgery (SDC) | payer MEDICARE, OTHER ==
[2025-06-16] MEDS ORDERED: Lidocaine HCl 4% Cream 5 GM ONE (07:47)
== END 2025-06-16 23:00 | disposition home or self-care (01) ==
LOC: WOUND 00:13
DX: L97.512 Non-pressure chronic ulcer of other part of right foot with fat layer exposed (principal)
CPT/HCPCS: A6213; A9270

== ENCOUNTER 2025-06-23 02:31 | Day surgery (SDC) | payer MEDICARE, OTHER ==
[2025-06-23] MEDS ORDERED: Lidocaine HCl 4% Cream 5 GM ONE (08:03)
== END 2025-06-23 23:00 | disposition home or self-care (01) ==
LOC: WOUND 02:31
DX: L97.512 Non-pressure chronic ulcer of other part of right foot with fat layer exposed (principal); S90.414D Abrasion, right lesser toe(s), subsequent encounter; X58.XXXD Exposure to other specified factors, subsequent encounter; Z95.0 Presence of cardiac pacemaker
CPT/HCPCS: A6213; A9270

== ENCOUNTER 2025-07-14 00:17 | Day surgery (SDC) | payer MEDICARE, OTHER ==
[2025-07-14] MEDS ORDERED: Lidocaine HCl 4% Cream 5 GM ONE (07:48)
== END 2025-07-14 23:00 | disposition home or self-care (01) ==
LOC: WOUND 00:17
DX: S91.301A Unspecified open wound, right foot, initial encounter (principal); S91.104A Unspecified open wound of right lesser toe(s) without damage to nail, initial encounter; X58.XXXA Exposure to other specified factors, initial encounter; L97.212 Non-pressure chronic ulcer of right calf with fat layer exposed; L97.812 Non-pressure chronic ulcer of other part of right lower leg with fat layer exposed
CPT/HCPCS: A9270

== ENCOUNTER 2025-07-18 10:08 | Inpatient (IN) | payer MEDICARE, OTHER ==
[~2025-07-18] VITALS: Ht 175.3 cm; Wt 79.3 kg
[2025-07-18 11:32] LABS: BASOPHILS ABSOLUTE AUTO 0.22 K/mm3 (0.00-0.23); BASOPHILS PERCENT AUTO 1 % (0-2); EOSINOPHILS ABSOLUTE AUTO 0.19 K/mm3 (0.00-0.68); EOSINOPHILS PERCENT AUTO 1 % (0-6); Hematocrit 41.7 % (33.0-51.0); Hemoglobin 11.8 g/dL (11.5-16.0); IMMATURE GRAN ABSOLUTE AUTO 0.42 K/mm3 (0.00-0.10); IMMATURE GRAN PERCENT AUTO 2 % (0-1); LYMPHOCYTES ABSOLUTE AUTO 0.97 K/mm3 (0.84-5.20); LYMPHOCYTES PERCENT AUTO 4 % (21-46); MONOCYTES ABSOLUTE AUTO 0.68 K/mm3 (0.16-1.47); MONOCYTES PERCENT AUTO 3 % (4-13); Mean Corpuscular HGB Conc 28.3 g/dL (31.5-36.5); Mean Corpuscular Volume 82 fL (80-100); NEUTROPHILS ABSOLUTE AUTO 21.11 K/mm3 (1.96-9.15); NEUTROPHILS PERCENT AUTO 90 % (41-73); NRBC ABSOLUTE 0.02 K/mm3 (0.00-0.02); NRBC Auto 0.1 /100 WBC (0.0-0.2); Platelet Count 504 K/mm3 (150-400); RDW Coefficient Variation 22.5 % (11.7-14.2); RDW Standard Deviation 58.8 fL (35.1-46.3)
[2025-07-18 11:44] LABS: Alanine Aminotransfer (ALT/SGP 14.0 U/L (12-78); Albumin, Blood 3.3 g/dL (3.4-5.0); Albumin/Globulin Ratio 0.9 (0.8-1.8); Anion Gap 9.0 mmol/L (3-11); Aspartate Aminotrans (AST/SGOT 11.0 U/L (12-37); Bilirubin, Total 1.2 mg/dL (0.1-1.0); Blood Urea Nitrogen 12.0 mg/dL (8-24); CO2, Blood 23.0 mmol/L (21-32); Calcium, Blood 8.9 mg/dL (8.5-10.1); Chloride, Blood 106.0 mmol/L (98-108); Creatinine, Blood 0.86 mg/dL (0.40-1.00); Globulin, Blood 3.5 g/dL (2.2-4.0); Glucose, Blood 117.0 mg/dL (70-99); Potassium, Blood 4.1 mmol/L (3.5-5.5); Sodium, Blood 134.0 mmol/L (136-145); Total Protein, Blood 6.8 g/dL (6.4-8.2)
[2025-07-18] MEDS ORDERED: Vancomycin (Pharmacy Consult) IV PRN (13:05)
[2025-07-18] MEDS ORDERED: FLU VACC TS2025(65UP)/MF59C/PF 45 MCG/0.5 ML SYRINGE IM SCH (14:35)
[2025-07-18] MEDS ORDERED: CeFAZolin Sodium 1,000 MG in NS 50 ML IV SCH (14:36)
[2025-07-18 17:09] VITALS: BP 152/117
--- NOTE | 2025-07-18 18:29 | NUR ---
SHIFT SUMMARY PT ADMITTED TO ROOM 345 FROM ER THIS EVENING. PT IS A/OX4. INDEPENDENT IN THE ROOM. CELLULITIS TO RLE, PICTURES TAKEN AND PLACED IN CHART. ON TELE RUNNING SINUS TACH WITH PVC'S. PT IS PLEASANT AND COOPERATIVE WITH CARE.
[2025-07-18 19:39] VITALS: BP 167/111
[2025-07-18] MEDS ORDERED: Labetalol HCL 5 MG/ML 4ML Injection (Single Dose) IV ONE (20:00)
[2025-07-18 20:08] VITALS: BP 169/126
[2025-07-18] MEDS ORDERED: NS 50 ML IV ONE (20:09)
[2025-07-18] MEDS ORDERED: NS 250 ML IV PRN (20:15)
[2025-07-18 20:35] VITALS: BP 139/98
--- NOTE | 2025-07-18 20:37 | NUR ---
@193 PT'S BP 167/111, P. 103, TELE: SINUS TACH 103 WITH BBB, PT DENIES CP/ PRESSURE. THIS PRESS WORKER HELPER CALLED ON-CALL HOSPITALIST KIM: NEW T-ORDERS LABETALOL 10MG IV X1 NOW METOPROLOL 37.5MG PO BID FIRST DOSE NOW. @2019 PT C/O N/V. H/A. THIS PRESS WORKER HELPER CALLED AGAIN TO SYSTEMS PROTECTION TECHNICIAN MADELINE: NEW T-ORDERS RECEIVED: ZOFRAN 4MG Q4PRN AND TYLENOL 500MG Q4PRN. ENTERED TO [email or web address], SEE EMAR. PER ODESSA CANO WHO ADMINISTERED IV LABETALOL ONE TIME ORDER, PT VOMITED THE METOPROLOL PO 37.25 PILL AFTER ADMINISTRATION. ODESSA CANO ADMINISTERED IV LABETALOL.
[2025-07-18] MEDS ORDERED: Ondansetron HCl 2 MG / ML 2ML Vial IV PRN (20:40)
[2025-07-18] MEDS ORDERED: Lactobacil 2-S.Thermo-Bifido 1 1 Cap PO SCH (21:00)
[2025-07-19] VITALS (7 sets, daily range): BP systolic 134–155; BP diastolic 98–113
--- NOTE | 2025-07-19 02:30 | NUR ---
SHIFT SUMMARY @HS PT C/O H/A, AND N/V. PT VOMITED X1. PT REPORTS TAKES METOPROLOL 37.5MG BID. PT'S BP ELEVATED AT HS. THIS COMPANY MARKER CALLED THE ON-CALL HOSPITALIST AND METOPROLOL AT HOME. METOPROLOL AND LABETALOL WERE ORDERED (SEE PREVIOUS NOTE). TYLENOL FOR H/A ADMINISTERED AND ZOFRAM FOR C/O NAUSEA. EFFECTIVE. IV ABX INFUSED ORDERED. NO ACUTE EVENTS REPORTED/NOTED. TELE: SINUS TACH @103 WITH BBB. PT DENIES CP/PRESSURE. BED AT THE LOWEST POSITION, CALL LIGHT W/I REACH. PT IS A/O X4 ABLE TO MAKE HER NEEDS KNOWN AND COOPERATIVE WITH CARE.
[2025-07-19 06:42] LABS: BASOPHILS ABSOLUTE AUTO 0.20 K/mm3 (0.00-0.23); BASOPHILS PERCENT AUTO 1 % (0-2); EOSINOPHILS ABSOLUTE AUTO 0.21 K/mm3 (0.00-0.68); EOSINOPHILS PERCENT AUTO 1 % (0-6); Hematocrit 40.6 % (33.0-51.0); Hemoglobin 11.4 g/dL (11.5-16.0); IMMATURE GRAN ABSOLUTE AUTO 0.41 K/mm3 (0.00-0.10); IMMATURE GRAN PERCENT AUTO 2 % (0-1); LYMPHOCYTES ABSOLUTE AUTO 1.01 K/mm3 (0.84-5.20); LYMPHOCYTES PERCENT AUTO 4 % (21-46); MONOCYTES ABSOLUTE AUTO 0.70 K/mm3 (0.16-1.47); MONOCYTES PERCENT AUTO 3 % (4-13); Mean Corpuscular HGB Conc 28.1 g/dL (31.5-36.5); Mean Corpuscular Volume 81 fL (80-100); NEUTROPHILS ABSOLUTE AUTO 24.33 K/mm3 (1.96-9.15); NEUTROPHILS PERCENT AUTO 91 % (41-73); NRBC ABSOLUTE 0.03 K/mm3 (0.00-0.02); NRBC Auto 0.1 /100 WBC (0.0-0.2); Platelet Count 503 K/mm3 (150-400); RDW Coefficient Variation 22.7 % (11.7-14.2); RDW Standard Deviation 59.2 fL (35.1-46.3)
[2025-07-19 07:02] LABS: Anion Gap 11.0 mmol/L (3-11); Blood Urea Nitrogen 12.0 mg/dL (8-24); CO2, Blood 20.0 mmol/L (21-32); Calcium, Blood 8.7 mg/dL (8.5-10.1); Chloride, Blood 106.0 mmol/L (98-108); Creatinine, Blood 0.78 mg/dL (0.40-1.00); Glucose, Blood 108.0 mg/dL (70-99); Potassium, Blood 4.0 mmol/L (3.5-5.5); Sodium, Blood 133.0 mmol/L (136-145)
[2025-07-19] MEDS ORDERED: Enoxaparin 40 MG/0.4 ML SYR SC SCH (09:00)
--- NOTE | 2025-07-19 17:02 | NUR ---
SHIFT SUMMARY PT IS A/OX4. INDEPENDENT IN THE ROOM. NO ACUTE CHANGES THROUGHOUT THIS SHIFT. PT REPORTS IMPROVEMENT TO CELLULITIS TO LLE. ON TELE RUNNING SINUS RYTHYM IN THE S. PT CONTINUES REPORTING HEADACHE THIS MORNING THROUGHOUT THIS SHIFT, MEDICATED PER OCT. PT ALSO REPORTING MILD NAUSEA WITHOUT VOMITTING THROUGHOUT THIS SHIFT, MEDICATED PER OCT.
--- NOTE | 2025-07-20 00:01 | NUR ---
DR BOB NOTIFIED OF HTN. NO ORDERS AT THIS TIME.
--- NOTE | 2025-07-20 03:28 | NUR ---
SHIFT SUMMARY NO ACUTE EVENTS DURING THIS SHIFT. PT'S BP AND P ELEVATED, PT C/O HEADACHE AT HS AMD DURIMG NIGHT HRS. OME EPISODE OF N/V DURING THE NIGHT TIME. PT REPORTS POOR PO INTAKE. SNACK OF JELLO PROVIDED. MEDICATED PER EMAR. LLE CELLULITIS COOL TO THE TOUCH, REDDENED AREA BELOW THE KNEE. RIGHT LE DRESSINGS C/D/I/. BED AT THE LOWEST POSITION, CALL LIGHT W/I REACH. PT IS A/O X4, PLEASANT AND COOPERATIVE WITH CARE.
[2025-07-20 04:30] VITALS: BP 156/109
--- NOTE | 2025-07-20 04:47 | NUR ---
approximately 0435 television script writer called and told this headline writer that pt had 24beat run of trigemini. This headline writer let the charge nurse Vega know. This headline writer spoke with the pt who is asymptomatic, denies cp/pressure, h.a, n/v at this time. Will piggypack and call and notify the on-call Hospitalist.
[2025-07-20] MEDS ORDERED: Levothyroxine Sodium 0.15 MG Tab PO SCH (06:00)
[2025-07-20 06:13] LABS: BASOPHILS ABSOLUTE AUTO 0.30 K/mm3 (0.00-0.23); BASOPHILS PERCENT AUTO 1 % (0-2); EOSINOPHILS ABSOLUTE AUTO 0.27 K/mm3 (0.00-0.68); EOSINOPHILS PERCENT AUTO 1 % (0-6); Hematocrit 44.3 % (33.0-51.0); Hemoglobin 12.7 g/dL (11.5-16.0); IMMATURE GRAN ABSOLUTE AUTO 1.01 K/mm3 (0.00-0.10); IMMATURE GRAN PERCENT AUTO 3 % (0-1); LYMPHOCYTES ABSOLUTE AUTO 1.20 K/mm3 (0.84-5.20); LYMPHOCYTES PERCENT AUTO 4 % (21-46); MONOCYTES ABSOLUTE AUTO 1.08 K/mm3 (0.16-1.47); MONOCYTES PERCENT AUTO 4 % (4-13); Mean Corpuscular HGB Conc 28.7 g/dL (31.5-36.5); Mean Corpuscular Volume 81 fL (80-100); NEUTROPHILS ABSOLUTE AUTO 27.23 K/mm3 (1.96-9.15); NEUTROPHILS PERCENT AUTO 88 % (41-73); NRBC ABSOLUTE 0.13 K/mm3 (0.00-0.02); NRBC Auto 0.4 /100 WBC (0.0-0.2); Platelet Count 525 K/mm3 (150-400); RDW Coefficient Variation 23.4 % (11.7-14.2); RDW Standard Deviation 60.7 fL (35.1-46.3)
[2025-07-20 06:31] LABS: Anion Gap 9.0 mmol/L (3-11); Blood Urea Nitrogen 11.0 mg/dL (8-24); CO2, Blood 23.0 mmol/L (21-32); Calcium, Blood 9.2 mg/dL (8.5-10.1); Chloride, Blood 102.0 mmol/L (98-108); Creatinine, Blood 0.73 mg/dL (0.40-1.00); Ferritin, Serum 113.0 ng/mL (8-252); Glucose, Blood 118.0 mg/dL (70-99); Potassium, Blood 4.0 mmol/L (3.5-5.5); Sodium, Blood 130.0 mmol/L (136-145); Total Iron Binding Capacity 436.0 ug/dL (250-450)
[2025-07-20 07:39] VITALS: BP 159/108
[2025-07-20 11:53] VITALS: BP 142/107
[2025-07-20 15:34] VITALS: BP 148/104
--- NOTE | 2025-07-20 17:17 | NUR ---
End of shift summary: Patient is alert and oriented x4; pleasant and cooperative with care. Patient up ambulating in hallway today independently. Patient with no acute changes this shift; all medications administered per EMAR. Patient with increased appetite today and denies nausea or need for medication. Denies SOB, CP or pressure, N/V/D and only slight headache today. Call light within reach and bed in lowest position. Will continue to monitor until next shift nurse arrives and report is given.
[2025-07-20 19:39] VITALS: BP 146/106
[2025-07-21 00:45] VITALS: BP 125/93
--- NOTE | 2025-07-21 04:04 | NUR ---
SHIFT SUMMARY PATIENT HAD NO ACUTE CHANGES. ALERT ORIENTED AND INDEPENDENT IN ROOM. DENIES CHEST PAIN, SOB, AND N/V. VSS/AFEBRILE. PIV INTACT. IV ABX INFUSED. TELE MONITOR ST 105. CALL LIGHT IN REACH. BED IN LOWEST POSITION. WILL CONTINUE TO MONITOR UNTIL DAY SHIFT NURSE ASSUMES CARE.
[2025-07-21 05:11] VITALS: BP 138/96
[2025-07-21 05:35] LABS: BASOPHILS ABSOLUTE AUTO 0.31 K/mm3 (0.00-0.23); BASOPHILS PERCENT AUTO 1 % (0-2); EOSINOPHILS ABSOLUTE AUTO 0.24 K/mm3 (0.00-0.68); EOSINOPHILS PERCENT AUTO 1 % (0-6); Hematocrit 45.2 % (33.0-51.0); Hemoglobin 12.9 g/dL (11.5-16.0); IMMATURE GRAN ABSOLUTE AUTO 0.85 K/mm3 (0.00-0.10); IMMATURE GRAN PERCENT AUTO 3 % (0-1); LYMPHOCYTES ABSOLUTE AUTO 1.19 K/mm3 (0.84-5.20); LYMPHOCYTES PERCENT AUTO 4 % (21-46); MONOCYTES ABSOLUTE AUTO 1.33 K/mm3 (0.16-1.47); MONOCYTES PERCENT AUTO 4 % (4-13); Mean Corpuscular HGB Conc 28.5 g/dL (31.5-36.5); Mean Corpuscular Volume 82 fL (80-100); NEUTROPHILS ABSOLUTE AUTO 26.26 K/mm3 (1.96-9.15); NEUTROPHILS PERCENT AUTO 87 % (41-73); NRBC ABSOLUTE 0.09 K/mm3 (0.00-0.02); NRBC Auto 0.3 /100 WBC (0.0-0.2); Platelet Count 441 K/mm3 (150-400); RDW Coefficient Variation 23.9 % (11.7-14.2); RDW Standard Deviation 63.4 fL (35.1-46.3)
[2025-07-21 06:00] LABS: Anion Gap 10.0 mmol/L (3-11); Blood Urea Nitrogen 13.0 mg/dL (8-24); CO2, Blood 23.0 mmol/L (21-32); Calcium, Blood 9.0 mg/dL (8.5-10.1); Chloride, Blood 102.0 mmol/L (98-108); Creatinine, Blood 0.81 mg/dL (0.40-1.00); Glucose, Blood 97.0 mg/dL (70-99); Potassium, Blood 3.8 mmol/L (3.5-5.5); Sodium, Blood 131.0 mmol/L (136-145)
[2025-07-21 07:19] VITALS: BP 122/95
--- NOTE | 2025-07-21 10:05 | NUR ---
RHYTM CHANGE NOTE: THIS RN CALLED BOBBIN WINDER TENDER AROUND 0800 THIS AM TO INQUIRE PATIENT RATE AND RHYTHM. PER [employer], UPON REVIEWING PATIENT RHYTM/RATE HAS BEEN A-FLUTTER SINCE ADMISSION, THOUGH THE EKG DONE ON 07/19 SHOWED A-PACED IN 60'S BPM, BOBBIN WINDER TENDER RECOMMENDED REPEAT EKG. NOTIFIED DR. MILLER, RECEIVED ORDER TO DO EKG.
[2025-07-21 11:16] VITALS: BP 137/95
[2025-07-21 15:43] VITALS: BP 131/99
--- NOTE | 2025-07-21 16:51 | NUR ---
DAY SHIFT SUMMARY: PATIENT L LEG CELLULITIS HAS IMPROVED. PATIENT BILAT FOOT/TOES HAS BLUISH/PURPLE DISCOLORATION, BUT WORSE ON THE RIGHT FOOT/TOES. 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 PINEDA NOTIFIED DURING ROUNDING AND ORDER ARTERIAL DUPLEX STUDY. PATIENT AMBULATED X1 AROUND THE UNIT c SBA FROM DUST COLLECTOR ATTENDANT, TOLERATING WELL. PATINT DENIES CP/PRESSURE, SOB, N/V AND DIZZINESS. EKG DONE. PATIENT ON TELE, A-FLUTTER IN LOW 100'S BPM. PATIENT RECEIVED SCHEDULED MEDS PER EMAR. VITAL SIGNS REVIEWED. PATIENT HAS MOD APPETITE, CONTINENT OF BLADDER, INDEPENDENT IN ROOM, STEADY GAIT, A/OX4, CALLS APPROPRIATELY AND MAKE NEEDS KNOWN. BED IN LOWEST POSTION. CALL LIGHT IN REACH.
[2025-07-21 20:03] VITALS: BP 141/92
[2025-07-22 00:31] VITALS: BP 143/105
--- NOTE | 2025-07-22 04:01 | NUR ---
SHIFT SUMMARY PATIENT HAD NO ACUTE CHANGES. ALERT ORIENTED AND INDEPENDENT IN ROOM. DENIES CHEST PAIN, SOB, AND N/V. VSS/AFEBRILE. TELE MONITOR AFLUTTER 105. PIV INTACT. IV ABX INFUSED. SLEPT MOST OF THE SHIFT. CALL LIGHT IN REACH. BED IN LOWEST POSITION. WILL CONTINUE TO MONITOR UNTIL DAY SHIFT NURSE ASSUMES CARE.
[2025-07-22 06:07] VITALS: BP 135/106
[2025-07-22 07:18] VITALS: BP 137/104
[2025-07-22 07:19] LABS: BASOPHILS ABSOLUTE AUTO 0.23 K/mm3 (0.00-0.23); BASOPHILS PERCENT AUTO 1 % (0-2); EOSINOPHILS ABSOLUTE AUTO 0.43 K/mm3 (0.00-0.68); EOSINOPHILS PERCENT AUTO 2 % (0-6); Hematocrit 42.2 % (33.0-51.0); Hemoglobin 12.0 g/dL (11.5-16.0); IMMATURE GRAN ABSOLUTE AUTO 0.66 K/mm3 (0.00-0.10); IMMATURE GRAN PERCENT AUTO 2 % (0-1); LYMPHOCYTES ABSOLUTE AUTO 1.08 K/mm3 (0.84-5.20); LYMPHOCYTES PERCENT AUTO 4 % (21-46); MONOCYTES ABSOLUTE AUTO 1.25 K/mm3 (0.16-1.47); MONOCYTES PERCENT AUTO 5 % (4-13); Mean Corpuscular HGB Conc 28.4 g/dL (31.5-36.5); Mean Corpuscular Volume 82 fL (80-100); NEUTROPHILS ABSOLUTE AUTO 24.38 K/mm3 (1.96-9.15); NEUTROPHILS PERCENT AUTO 87 % (41-73); NRBC ABSOLUTE 0.05 K/mm3 (0.00-0.02); NRBC Auto 0.2 /100 WBC (0.0-0.2); Platelet Count 318 K/mm3 (150-400); RDW Coefficient Variation 23.9 % (11.7-14.2); RDW Standard Deviation 65.8 fL (35.1-46.3)
[2025-07-22 07:28] LABS: Anion Gap 10.0 mmol/L (3-11); Blood Urea Nitrogen 14.0 mg/dL (8-24); CO2, Blood 25.0 mmol/L (21-32); Calcium, Blood 8.8 mg/dL (8.5-10.1); Chloride, Blood 102.0 mmol/L (98-108); Creatinine, Blood 0.87 mg/dL (0.40-1.00); Glucose, Blood 113.0 mg/dL (70-99); Potassium, Blood 4.0 mmol/L (3.5-5.5); Sodium, Blood 133.0 mmol/L (136-145)
[2025-07-22 11:47] VITALS: BP 124/84
[2025-07-22 15:25] VITALS: BP 142/98
--- NOTE | 2025-07-22 17:05 | NUR ---
End of shift summary: Patient is alert and oriented x4; pleasant and cooperative with care. Patient up ambulating independently in hallway today. No acute changes this shift. All medications administered per EMAR. Patient with 1-2 more days for IV antibiotics before discharge home. Denies SOB, CP or pressure, N/V/D and only mild pain today. Bed in lowest position and call light within reach. Will continue to monitor until next shift nurse arrives and report is given.
[2025-07-22 19:36] VITALS: BP 119/102
[2025-07-23 00:03] VITALS: BP 119/88
[2025-07-23 04:04] VITALS: BP 108/92
[2025-07-23 05:33] LABS: BASOPHILS ABSOLUTE AUTO 0.21 K/mm3 (0.00-0.23); BASOPHILS PERCENT AUTO 1 % (0-2); EOSINOPHILS ABSOLUTE AUTO 0.27 K/mm3 (0.00-0.68); EOSINOPHILS PERCENT AUTO 1 % (0-6); Hematocrit 39.4 % (33.0-51.0); Hemoglobin 10.8 g/dL (11.5-16.0); IMMATURE GRAN ABSOLUTE AUTO 0.50 K/mm3 (0.00-0.10); IMMATURE GRAN PERCENT AUTO 2 % (0-1); LYMPHOCYTES ABSOLUTE AUTO 1.05 K/mm3 (0.84-5.20); LYMPHOCYTES PERCENT AUTO 5 % (21-46); MONOCYTES ABSOLUTE AUTO 0.97 K/mm3 (0.16-1.47); MONOCYTES PERCENT AUTO 4 % (4-13); Mean Corpuscular HGB Conc 27.4 g/dL (31.5-36.5); Mean Corpuscular Volume 84 fL (80-100); NEUTROPHILS ABSOLUTE AUTO 19.27 K/mm3 (1.96-9.15); NEUTROPHILS PERCENT AUTO 87 % (41-73); NRBC ABSOLUTE 0.04 K/mm3 (0.00-0.02); NRBC Auto 0.2 /100 WBC (0.0-0.2); Platelet Count 272 K/mm3 (150-400); RDW Coefficient Variation 23.8 % (11.7-14.2); RDW Standard Deviation 68.4 fL (35.1-46.3)
[2025-07-23 06:09] LABS: Anion Gap 9.0 mmol/L (3-11); Blood Urea Nitrogen 16.0 mg/dL (8-24); CO2, Blood 25.0 mmol/L (21-32); Calcium, Blood 8.6 mg/dL (8.5-10.1); Chloride, Blood 104.0 mmol/L (98-108); Creatinine, Blood 0.92 mg/dL (0.40-1.00); Glucose, Blood 101.0 mg/dL (70-99); Potassium, Blood 3.8 mmol/L (3.5-5.5); Sodium, Blood 134.0 mmol/L (136-145)
--- NOTE | 2025-07-23 06:36 | NUR ---
Shift Summary Pt on telemetry. educational technology specialist called around [address] elevation. I called the production control scheduler hospitalist who ordered PRN EKG. EKG showed A-flutter with BBB, no ST elevation. Pt is asymptomatic, no chest pain, nausea or light headedness although she does feel very tired this morning d/t lack of sleep. No new orders from provider. Pt is AOx4, independent in the room.
[2025-07-23 07:30] VITALS: BP 110/88
[2025-07-23 11:51] VITALS: BP 95/75
[2025-07-23 15:55] VITALS: BP 121/91
--- NOTE | 2025-07-23 17:59 | NUR ---
End of shift summary: Patient is alert and oriented x4; pleasant and cooperative with care. Patient up ambulating in hallways with family. No acute changes this shift. All medications administered per EMAR. Patient denies SOB, CP or pressure, N/V/D or pain today. Plan for 1-2 more days of current treatment before discharging home. Call light within reach, bed in lowest position. Will continue to monitor until next shift nurse arrives and report is given.
[2025-07-23 19:37] VITALS: BP 136/105
[2025-07-24] VITALS (7 sets, daily range): BP systolic 92–148; BP diastolic 59–108
[2025-07-24 06:08] LABS: Hematocrit 42.2 % (33.0-51.0); Hemoglobin 11.8 g/dL (11.5-16.0); Mean Corpuscular HGB Conc 28.0 g/dL (31.5-36.5); Mean Corpuscular Volume 85 fL (80-100); NRBC ABSOLUTE 0.07 K/mm3 (0.00-0.02); NRBC Auto 0.2 /100 WBC (0.0-0.2); Platelet Count 301 K/mm3 (150-400); RDW Coefficient Variation 24.0 % (11.7-14.2); RDW Standard Deviation 70.9 fL (35.1-46.3)
[2025-07-24 06:33] LABS: Anion Gap 8.0 mmol/L (3-11); BAND PERCENT MAN 2 % (0-8); BASOPHILS ABSOLUTE MAN 0.00 K/mm3 (0.00-0.23); BASOPHILS PERCENT MAN 0 % (0-2); Blood Urea Nitrogen 18.0 mg/dL (8-24); CO2, Blood 26.0 mmol/L (21-32); Calcium, Blood 9.2 mg/dL (8.5-10.1); Chloride, Blood 105.0 mmol/L (98-108); Creatinine, Blood 0.8 mg/dL (0.40-1.00); EOSINOPHILS ABSOLUTE MAN 0.95 K/mm3 (0.00-0.68); EOSINOPHILS PERCENT MAN 3 % (0-6); Glucose, Blood 154.0 mg/dL (70-99); LYMPHOCYTES ABSOLUTE MAN 1.58 K/mm3 (0.84-5.20); LYMPHOCYTES PERCENT MAN 5 % (21-46); METAMYELOCYTE ABSOLUTE MAN 0.63 K/mm3 (0.00-0.00); METAMYELOCYTE PERCENT MAN 2 % (0-0); MONOCYTES ABSOLUTE MAN 2.21 K/mm3 (0.16-1.47); MONOCYTES PERCENT MAN 7 % (4-13); MYELOCYTE ABSOLUTE MAN 0.31 K/mm3 (0.00-0.00); MYELOCYTE PERCENT MAN 1 % (0-0); NEUTROPHILS ABSOLUTE MAN 26.00 K/mm3 (1.96-9.15); Potassium, Blood 4.1 mmol/L (3.5-5.5); SEG NEUTROPHILS PERCENT MAN 80 % (41-73); Sodium, Blood 135.0 mmol/L (136-145)
--- NOTE | 2025-07-24 06:33 | NUR ---
Shift Summary Pt unable to sleep tonight, she says insomnia is common for her. This AM her breath sounds are wheezy and she feels like she is not getting enough air. I called the microarray operations vice president hospitalist who ordered Q4 nebs PRN. I then called RT and requested a neb treatment, currently awaiting RT arrival. Pt is on tele and one run of V-Tach for 5 beats, asymptomatic. Pt is AOx4, independent in the room.
[2025-07-24] MEDS ORDERED: Albuterol 2.5 MG/3 ML VIAL INH PRN (06:40)
--- NOTE | 2025-07-24 17:04 | NUR ---
End of shift summary: Patient is alert and oriented x4; pleasant and cooperative with care, still with some lethargy today. Patient with CT completed per orders. All medications administered per EMAR. Patient denies SOB, CP or pressure, N/V/D or pain today. Call light within reach and bed in lowest position. Will continue to monitor until next shift nurse arrives and report is given.
[2025-07-25 03:59] VITALS: BP 127/83
--- NOTE | 2025-07-25 06:15 | NUR ---
SHIFT SUMMARY: A&Ox4. PLEASANT AND COOPERATIVE WITH CARE. CALLS APPROPRIATELY AND IS ABLE TO ADVOCATE NEEDS EFFECTIVELY. TELE SINUS TACH AT 109 BPM. BP WAS LOW AT START OF SHIFT AND RESOLVED SPONTANEOUSLY BUT METOPROLOL HELD DUE TO PERAMETERS. GIVEN IV ABX FOR CONT LLE CELLULITIS, THOUGH SWELLING AND REDNESS APPEARS TO BE IMPROVING. TOES APPEAR DARK RED/PURPLE BUT PERFUSION WNL. CONTINENT OF BOWEL AND BLADDER; AMBULATES INDEPENDENTLY, PREFERS [employer] WHOLE C PUDDING. BED IN LOWEST POSITION, CALL LIGHT WITHIN REACH. REPORT TO ONCOMING NURSE.
[2025-07-25 06:47] LABS: BASOPHILS ABSOLUTE AUTO 0.23 K/mm3 (0.00-0.23); BASOPHILS PERCENT AUTO 1 % (0-2); EOSINOPHILS ABSOLUTE AUTO 0.23 K/mm3 (0.00-0.68); EOSINOPHILS PERCENT AUTO 1 % (0-6); Hematocrit 41.4 % (33.0-51.0); Hemoglobin 11.6 g/dL (11.5-16.0); IMMATURE GRAN ABSOLUTE AUTO 0.54 K/mm3 (0.00-0.10); IMMATURE GRAN PERCENT AUTO 2 % (0-1); LYMPHOCYTES ABSOLUTE AUTO 1.27 K/mm3 (0.84-5.20); LYMPHOCYTES PERCENT AUTO 5 % (21-46); MONOCYTES ABSOLUTE AUTO 1.25 K/mm3 (0.16-1.47); MONOCYTES PERCENT AUTO 5 % (4-13); Mean Corpuscular HGB Conc 28.0 g/dL (31.5-36.5); Mean Corpuscular Volume 85 fL (80-100); NEUTROPHILS ABSOLUTE AUTO 21.26 K/mm3 (1.96-9.15); NEUTROPHILS PERCENT AUTO 86 % (41-73); NRBC ABSOLUTE 0.08 K/mm3 (0.00-0.02); NRBC Auto 0.3 /100 WBC (0.0-0.2); Platelet Count 289 K/mm3 (150-400); RDW Coefficient Variation 24.0 % (11.7-14.2); RDW Standard Deviation 70.0 fL (35.1-46.3)
[2025-07-25 07:26] LABS: Anion Gap 10.0 mmol/L (3-11); Blood Urea Nitrogen 16.0 mg/dL (8-24); CO2, Blood 26.0 mmol/L (21-32); Calcium, Blood 8.8 mg/dL (8.5-10.1); Chloride, Blood 102.0 mmol/L (98-108); Creatinine, Blood 0.77 mg/dL (0.40-1.00); Glucose, Blood 117.0 mg/dL (70-99); Potassium, Blood 3.9 mmol/L (3.5-5.5); Sodium, Blood 134.0 mmol/L (136-145)
[2025-07-25 07:32] VITALS: BP 149/95
[2025-07-25 11:28] VITALS: BP 134/101
[2025-07-25] MEDS ORDERED: AMOCLA875 PO (14:35)
--- NOTE | 2025-07-25 15:39 | NUR ---
DISCHARGE NOTE- PT WAS GIVEN VERBAL AND WRITTEN DISCHARGE INSTRUCTIONS AND ACKNOWLEDGED UNDERSTAANDING OF THEM. PT WAS ANXIOUSLY AWAITING THE DISCHARGE PACKET, DRESSED HERSELF, AND WALKED OUT INTO THE HALLWAY TO GET INTO THE WHEELCHAIR. THEY DECLINED ESCORT AND THE DAUGHTER PUSHED THE PT OUT TO WHERE SHE PARKED TO TAKE THE PT HOME. NO S&S OF DISTRESS NOTED. IV AND TELE DC'D BY THE OUTSIDE SALES REPRESENTATIVE INSURANCE PRIOR TO DISCHARGE.
== END 2025-07-25 14:45 | disposition home or self-care (01) | DRG 872 ==
LOC: ER 10:08 → MEDS 15:11
PROVIDERS: Physician Assistant; ADMIT Family Medicine
DX: A41.9 Sepsis, unspecified organism (principal); L03.116 Cellulitis of left lower limb; E87.1 Hypo-osmolality and hyponatremia; L97.919 Non-pressure chronic ulcer of unspecified part of right lower leg with unspecified severity; I48.92 Unspecified atrial flutter; L97.929 Non-pressure chronic ulcer of unspecified part of left lower leg with unspecified severity; J44.9 Chronic obstructive pulmonary disease, unspecified; D64.9 Anemia, unspecified; I73.9 Peripheral vascular disease, unspecified; I10 Essential (primary) hypertension; E78.5 Hyperlipidemia, unspecified; E03.9 Hypothyroidism, unspecified; F17.210 Nicotine dependence, cigarettes, uncomplicated; D75.839 Thrombocytosis, unspecified; F12.90 Cannabis use, unspecified, uncomplicated; I48.91 Unspecified atrial fibrillation; I25.10 Atherosclerotic heart disease of native coronary artery without angina pectoris; K21.9 Gastro-esophageal reflux disease without esophagitis; D45 Polycythemia vera; Z79.890 Hormone replacement therapy; Z79.82 Long term (current) use of aspirin; Z79.01 Long term (current) use of anticoagulants; Z79.2 Long term (current) use of antibiotics; Z90.89 Acquired absence of other organs; Z86.73 Personal history of transient ischemic attack (TIA), and cerebral infarction without residual deficits; Z98.890 Other specified postprocedural states; I25.2 Old myocardial infarction; Z95.5 Presence of coronary angioplasty implant and graft; Z95.2 Presence of prosthetic heart valve; Z87.19 Personal history of other diseases of the digestive system; Z79.899 Other long term (current) drug therapy
CPT/HCPCS: 36415; 73701; 80048; 80053; 82728; 83540; 83550; 83605; 83735; 85025; 93005; 93010; 93926; 94640; 94664; 94760; 96365; 99284-25; A9270; J0690; J1650; J2405; J3373; J7040; J7050; Q9967